=== PATIENT | female | born 1990 | race American Indian/Alaskan Native ===

== ENCOUNTER 2019-10-28 14:39 | Emergency (ER) | payer OTHER ==
[2019-10-28 15:02] VITALS: BP 118/69
[2019-10-28 16:06] LABS: Basophils % (Auto) 0.8 % (0.0-1.8); Eosinophils # (Auto) 0.1 K/mm3 (0.0-0.4); Eosinophils % (Auto) 1.5 % (0.0-4.3); Hematocrit 41.8 % (30.3-42.9); Lymphocytes # (Auto) 2.4 K/mm3 (1.2-5.4); Lymphocytes % (Auto) 42.2 % (13.4-35.0); Mean Corpuscular HGB Conc 34 % (30-34); Mean Corpuscular Volume 92 fl (79-97); Monocytes # (Auto) 0.3 K/mm3 (0.0-0.8); Monocytes % (Auto) 5.6 % (0.0-7.3); Platelet Count 246 K/mm3 (140-440); Red Blood Count 4.54 M/mm3 (3.65-5.03); Red Cell Distribution Width 13.4 % (13.2-15.2)
[2019-10-28 16:10] LABS: Bacteria,Urine 1+ /HPF (Negative); Bilirubin,Urine NEG (Negative); Blood,Urine NEG (Negative); Color,Urine Yellow (Yellow); Mucus,Urine 3+ /HPF; Protein,Urine <15 mg/dL mg/dL (Negative); RBC,Urine < 1.0 /HPF (0.0-6.0); Urobilinogen,Urine < 2.0 mg/dL (<2.0)
--- NOTE | 2019-10-28 19:43 | Emergency Department Report ---
Chief Complaint: Vaginal Bleeding Stated Complaint: GLAND SWELLING/PAIN Time Seen by Provider: 10/28/19 19:38 - HPI History of Present Illness: 29-year-old -Colombian female presents to the emergency room stating that she has a rash down in her vaginal. That's painful. Patient denies any discharge or odor. Patient denies any abdominal pain or nausea no vomiting no fever or chills. - Exam Vital Signs: Vital Signs 10/28/19 10/28/19 14:54 14:55 Temperature 98.5 F 98.2 F Pulse Rate 79 69 Respiratory 16 17 Rate Blood Pressure 117/66 118/69 O2 Sat by Pulse 97 100 Oximetry Physical Exam: alert and oriented 3 no acute distress nontoxic in appearance Patient is able to walk without difficulty, mood is stable MSE screening note: Focused history and physical exam performed. Due to findings the following was ordered: 29-year-old -[place]ombian female presents to the emergency room stating that she has a rash down in her vaginal. That's painful. Patient denies any discharge or odor. Patient denies any abdominal pain or nausea no vomiting no fever or chills. She has stable vital signs. Urinalysis is negative for any acute findings. Discussed with patient she needs to follow up with her [employer] provider or health department for STD screening. Patient verbalized understanding ED Medical Decision Making - Lab Data Result diagrams: 10/28/19 15:45 ED Disposition for MSE Disposition: Z-07 MED SCREENING EXAM-LEFT Is pt being admited?: No Does the pt Need Aspirin: No Condition: Stable Referrals: PRIMARY CARE [Primary Care Provider] - 3-5 Days [facility] [Outside] - 3-5 Days [facility] [Outside] - 3-5 Days [facility] [Outside] - 3-5 Days [facility] [Outside] - 3-5 Days
== END 2019-10-28 20:00 | disposition left against medical advice (07) ==
LOC: ED 14:39
DX: R21 Rash and other nonspecific skin eruption (principal)
CPT/HCPCS: 36415; 81001; 84702; 84703; 85025

== ENCOUNTER 2019-12-07 17:28 | Emergency (ER) | payer OTHER ==
[2019-12-07 17:40] VITALS: BP 125/75
--- NOTE | 2019-12-07 19:49 | Emergency Department Report ---
Blank Doc - Documentation Documentation: 29-year-old female that presents with right flank pain. This initial assessment/diagnostic orders/clinical plan/treatment(s) is/are subject to change based on patient's health status, clinical progression and re- assessment by fellow clinical providers in the ED. Further treatment and workup at subsequent clinical providers discretion. Patient/guardians urged not to elope from the ED as their condition may be serious if not clinically assessed and managed. Initial orders include: 1- Patient sent to [facility] for further evaluation and treatment 2- UA
[2019-12-07 20:16] LABS: Bilirubin,Urine NEG (Negative); Blood,Urine LG (Negative); Color,Urine Yellow (Yellow); Mucus,Urine 3+ /HPF; Protein,Urine <15 mg/dL mg/dL (Negative); Urobilinogen,Urine < 2.0 mg/dL (<2.0)
[2019-12-07] MEDS ORDERED: KETOROLAC 30 MG/1 ML INJ IM ONE (20:28)
[2019-12-07] MEDS ORDERED: dexAMETHasone 20 MG/5 ML VIAL IM ONE (20:29)
[2019-12-07] MEDS ORDERED: ONDANSETRON 4 MG ODT TAB PO ONE (20:29)
[2019-12-07] MEDS ORDERED: oxyCODONE /ACETAMINOPHEN 5-325MG TAB PO ONE (20:31)
[2019-12-07 20:40] LABS: HCG Qualitative,Urine Negative (Negative)
--- NOTE | 2019-12-07 22:04 | Emergency Department Report ---
ED Back Pain/Injury HPI - General Chief Complaint: Back Pain/Injury Stated Complaint: BACK PAIN Time Seen by Provider: 12/07/19 19:49 Source: patient Limitations: No Limitations - History of Present Illness Initial Comments: Patient is a 29-year-old -[place]er female with no past medical history who presents to the ED with a complaint of acute onset persistent nontraumatic low back pain for the last 2 days. Patient states that in the last 12 hours the pain is worse and said that any slight movement makes the pain worse in her lower back. Patient denies fall, traumatic injury, heavy lifting, chest pain, shortness of breath, abdominal pain, hematuria, numbness and tingling or weakness of the lower extremities bilaterally, urinary or bowel incontinence, saddle paresthesia, dizziness, dysuria, urinary frequency and urgency and headache. MD Complaint: back pain -: Sudden, hour(s) (24) Similar Symptoms Previously: No Place: work Radiation: none Severity: severe Severity scale (0 -10): 8 Quality: sharp, aching Consistency: constant Improves With: none Worsens With: none Context: while lifting, turning/twisting, bending Associated Symptoms: denies other symptoms. denies: confusion, weakness, chest pain, numbness, difficulty walking, difficulty urinating, diaphoresis, constipation, headaches, abdominal pain, loss of appetite, nausea/vomiting, rash, seizure, shortness of breath, syncope, other - Related Data Previous Rx's Medication Instructions Recorded Last Taken Type Ibuprofen [Motrin] 600 mg PO Q8H PRN #30 tablet 12/07/19 Unknown Rx cephALEXin [Keflex] 500 mg PO Q8HR #30 cap 12/07/19 Unknown Rx methOCARBAMOL [Robaxin TAB] 750 mg PO Q8H PRN #30 tablet 12/07/19 Unknown Rx predniSONE [Deltasone] 40 mg PO QDAY #10 tab 12/07/19 Unknown Rx traMADoL [Ultram] 50 mg PO Q6HR PRN #12 tablet 12/07/19 Unknown Rx Allergies Allergy/AdvReac Type Severity Reaction Status Date / Time No Known Allergies Allergy Verified 12/07/19 17:30 ED Review of Systems ROS: Stated complaint: BACK PAIN Other details as noted in HPI Constitutional: denies: chills, fever Eyes: denies: eye pain, eye discharge, vision change ENT: denies: ear pain, throat pain Respiratory: denies: cough, shortness of breath, wheezing Cardiovascular: denies: chest pain, palpitations Endocrine: no symptoms reported Gastrointestinal: denies: abdominal pain, nausea, diarrhea Genitourinary: denies: urgency, dysuria, discharge Musculoskeletal: back pain (lower back pain). denies: joint swelling, arthralgia Skin: denies: rash, lesions Neurological: denies: headache, weakness, paresthesias Psychiatric: denies: anxiety, depression Hematological/Lymphatic: denies: easy bleeding, easy bruising ED Past Medical Hx - Past Medical History Previous Medical History?: No - Surgical History Past Surgical History?: No - Social History Smoking Status: Never Smoker Substance Use Type: None - Medications Home Medications: Home Medications Medication Instructions Recorded Confirmed Last Taken Type Ibuprofen [Motrin] 600 mg PO Q8H PRN #30 tablet 12/07/19 Unknown Rx cephALEXin [Keflex] 500 mg PO Q8HR #30 cap 12/07/19 Unknown Rx methOCARBAMOL [Robaxin TAB] 750 mg PO Q8H PRN #30 tablet 12/07/19 Unknown Rx predniSONE [Deltasone] 40 mg PO QDAY #10 tab 12/07/19 Unknown Rx traMADoL [Ultram] 50 mg PO Q6HR PRN #12 tablet 12/07/19 Unknown Rx ED Physical Exam - General Limitations: No Limitations General appearance: alert, in no apparent distress - Head Head exam: Present: atraumatic, normocephalic, normal inspection - Eye Eye exam: Present: normal appearance, PERRL, EOMI Pupils: Present: normal accommodation - ENT ENT exam: Present: normal exam, normal orophraynx, mucous membranes moist, TM's normal bilaterally, normal external ear exam - Neck Neck exam: Present: normal inspection, full ROM. Absent: tenderness, lymphadenopathy - Respiratory Respiratory exam: Present: normal lung sounds bilaterally. Absent: respiratory distress, wheezes, rales, rhonchi, chest wall tenderness, accessory muscle use, decreased breath sounds, prolonged expiratory - Cardiovascular Cardiovascular Exam: Present: regular rate, normal rhythm, normal heart sounds. Absent: systolic murmur, diastolic murmur, rubs, gallop - GI/Abdominal GI/Abdominal exam: Present: soft, normal bowel sounds. Absent: distended, tenderness, guarding, hyperactive bowel sounds, hypoactive bowel sounds, organomegaly - Extremities Exam Extremities exam: Present: normal inspection, full ROM, normal capillary refill - Back Exam Back exam: Present: normal inspection, full ROM, tenderness (Palpable lumbosacral paraspinal tenderness), muscle spasm, paraspinal tenderness - Neurological Exam Neurological exam: Present: alert, oriented X3, CN II-XII intact, normal gait, reflexes normal - Psychiatric Psychiatric exam: Present: normal affect, normal mood - Skin Skin exam: Present: warm, dry, intact, normal color. Absent: rash ED Course Vital Signs 12/07/19 12/07/19 12/07/19 17:38 21:00 21:02 Temperature 99.6 F Pulse Rate 85 Respiratory 18 14 14 Rate Blood Pressure 125/75 [Right] O2 Sat by Pulse 98 Oximetry ED Medical Decision Making - Medical Decision Making This is a 29-year-old female who presented to the ED with acute onset of nontraumatic low back pain for 2 days. In the ED, patient is alert and oriented 3 and is not in distress but appears to be in significant pain, crying during the physical exam. She was treated for pain in the ED and urinalysis shows acut e urinary tract infection. On reevaluation, patient's pain is well controlled medications. Patient was discharged home on pain medications and muscle relaxants and antibiotics for UTI and was advised to follow-up with her primary care physician and 7-10 days for reevaluation or return to the ED immediately if symptoms get worse. - Differential Diagnosis UTI; Muscle strain; muscle spasm Critical care attestation.: If time is entered above; I have spent that time in minutes in the direct care of this critically ill patient, excluding procedure time. ED Disposition Clinical Impression: Spasm of muscle of lower back, Acute urinary tract infection Acute low back pain Qualifiers: Back pain laterality: bilateral Sciatica presence: without sciatica Qualified Code(s): M54.5 - Low back pain Strain of lumbar paraspinal muscle Qualifiers: Encounter type: initial encounter Qualified Code(s): S39.012A - Strain of muscle, fascia and tendon of lower back, initial encounter Disposition: TO HOME OR SELFCARE Is pt being admited?: No Does the pt Need Aspirin: No Condition: Stable Instructions: Muscle Strain (ED), Muscle Spasm (ED), Acute Low Back Pain (ED), Urinary Tract Infection in Women (ED) Additional Instructions: Take medications with food, drink plenty of fluids and follow up with your primary care physician in 7-10 days for reevaluation. Return to the ED immediately if symptoms get worse. No heavy lifting advised and to evaluated by your primary care physician in 7-10 days. Prescriptions: predniSONE [Deltasone] 40 mg PO QDAY #10 tab cephALEXin [Keflex] 500 mg PO Q8HR #30 cap Ibuprofen [Motrin] 600 mg PO Q8H PRN #30 tablet PRN Reason: Pain methOCARBAMOL [Robaxin TAB] 750 mg PO Q8H PRN #30 tablet PRN Reason: Muscle Spasm traMADoL [Ultram] 50 mg PO Q6HR PRN #12 tablet PRN Reason: Pain Referrals: KATHYA TORRES MD [Staff Physician] - 7-10 days Forms: Work/School Release Form(ED) Time of Disposition: 22:04 Print Language: KENYAN
== END 2019-12-07 22:25 | disposition home or self-care (01) ==
LOC: ED 17:28
DX: S39.012A Strain of muscle, fascia and tendon of lower back, initial encounter (principal); M62.830 Muscle spasm of back; N39.0 Urinary tract infection, site not specified; Z79.1 Long term (current) use of non-steroidal anti-inflammatories (NSAID); Z79.899 Other long term (current) drug therapy; X58.XXXA Exposure to other specified factors, initial encounter; Y93.89 Activity, other specified; Y92.89 Other specified places as the place of occurrence of the external cause; Y99.8 Other external cause status
CPT/HCPCS: 81001; 81025; 87086; 96372; 99283; J1100; J1885; Q0162

== ENCOUNTER 2020-07-18 14:17 | Emergency (ER) | payer OTHER ==
[2020-07-18 14:43] VITALS: BP 114/74
[2020-07-18] MEDS ORDERED: KETOROLAC 30 MG/1 ML INJ IM ONE (18:45)
--- NOTE | 2020-07-18 18:49 | Emergency Department Report ---
ED General Adult HPI - General Chief complaint: Extremity Injury, Upper Stated complaint: RT ARM PAIN Time Seen by Provider: 07/18/20 16:09 Source: patient Mode of arrival: Ambulatory Limitations: No Limitations - History of Present Illness Initial comments: Patient presents with complaints of right shoulder pain ongoing since 07/13/2020. Patient states that she had a work-related injury when she picked up a heavy object and felt a pop. She states she did follow-up with the [employer] doctor the next day and had injections placed into her arm. Patient states her arm continues to hurt and that the medication given for home is not helping. She also states she has some numbness in the arm and decreased range of motion due to pain. She denies any chest pain or shortness of breath. Pain occurs with movement of the arm. She also reports that she is supposed to be wearing a sling but did not have it on today. - Related Data Previous Rx's Medication Instructions Recorded Last Taken Type Ibuprofen [Motrin] 600 mg PO Q8H PRN #30 tablet 12/07/19 Unknown Rx cephALEXin [Keflex] 500 mg PO Q8HR #30 cap 12/07/19 Unknown Rx methOCARBAMOL [Robaxin TAB] 750 mg PO Q8H PRN #30 tablet 12/07/19 Unknown Rx predniSONE [Deltasone] 40 mg PO QDAY #10 tab 12/07/19 Unknown Rx traMADoL [Ultram] 50 mg PO Q6HR PRN #12 tablet 12/07/19 Unknown Rx Allergies Allergy/AdvReac Type Severity Reaction Status Date / Time No Known Allergies Allergy Verified 07/18/20 14:39 ED Review of Systems ROS: Stated complaint: RT ARM PAIN Other details as noted in HPI Constitutional: denies: chills, diaphoresis, fever, malaise, weakness Respiratory: denies: cough, shortness of breath Cardiovascular: denies: chest pain, palpitations, edema, syncope Gastrointestinal: denies: abdominal pain, nausea, vomiting Musculoskeletal: arthralgia. denies: joint swelling Skin: denies: change in color Neurological: numbness. denies: weakness, abnormal gait Hematological/Lymphatic: denies: swollen glands ED Past Medical Hx - Social History Smoking Status: Never Smoker Substance Use Type: None - Medications Home Medications: Home Medications Medication Instructions Recorded Confirmed Last Taken Type Ibuprofen [Motrin] 600 mg PO Q8H PRN #30 tablet 12/07/19 Unknown Rx cephALEXin [Keflex] 500 mg PO Q8HR #30 cap 12/07/19 Unknown Rx methOCARBAMOL [Robaxin TAB] 750 mg PO Q8H PRN #30 tablet 12/07/19 Unknown Rx predniSONE [Deltasone] 40 mg PO QDAY #10 tab 12/07/19 Unknown Rx traMADoL [Ultram] 50 mg PO Q6HR PRN #12 tablet 12/07/19 Unknown Rx ED Physical Exam - General Limitations: No Limitations General appearance: alert, in no apparent distress - Head Head exam: Present: atraumatic, normocephalic - Eye Eye exam: Present: normal appearance. Absent: scleral icterus - Neck Neck exam: Present: normal inspection, full ROM - Respiratory Respiratory exam: Present: normal lung sounds bilaterally. Absent: respiratory distress, chest wall tenderness - Cardiovascular Cardiovascular Exam: Present: regular rate, normal rhythm. Absent: systolic murmur, diastolic murmur, rubs, gallop - GI/Abdominal GI/Abdominal exam: Present: soft. Absent: distended, tenderness - Extremities Exam Extremities exam: Present: other (Tenderness to palpation of the muscles overlying the right shoulder without bony deformity/tenderness noted. Patient has slight limited range of motion of abduction of the shoulder secondary to pain. Normal radial and ulnar pulses noted. Full range of motion of the right elbow, wrist, hand, and fingers is noted with normal perfusion and sensation) - Neurological Exam Neurological exam: Present: alert, oriented X3 - Psychiatric Psychiatric exam: Present: normal affect, normal mood - Skin Skin exam: Present: warm, dry, intact, normal color. Absent: rash, ecchymosis ED Course Vital Signs 07/18/20 07/18/20 14:39 20:55 Temperature 98.1 F Pulse Rate 68 79 Respiratory 18 17 Rate Blood Pressure 114/74 O2 Sat by Pulse 100 100 Oximetry ED Medical Decision Making - Medical Decision Making Patient presents with complaints of right shoulder pain ongoing since 07/13/2020. Patient states that she had a work-related injury when she picked up a heavy object and felt a pop. She states she did follow-up with the Work[employer] doctor the next day and had injections placed into her arm. Patient states her arm continues to hurt and that the medication given for home is not helping. She also states she has some numbness in the arm and decreased range of motion due to pain. She denies any chest pain or shortness of breath. Pain occurs with movement of the arm. She also reports that she is supposed to be wearing a sling but did not have it on today. No significant abnormalities are noted on exam. Given patient is already following with [employer]er's [employer]. physician, recommend continued follow-up for further assessment and treatment. She is well-appearing and stable for discharge home. Strict return precautions were discussed in detail with patient who verbalizes understanding. Critical care attestation.: If time is entered above; I have spent that time in minutes in the direct care of this critically ill patient, excluding procedure time. ED Disposition Clinical Impression: Right shoulder injury Qualifiers: Encounter type: initial encounter Qualified Code(s): S49.91XA - Unspecified injury of right shoulder and upper arm, initial encounter Disposition: DC-01 TO HOME OR SELFCARE Is pt being admited?: No Condition: Stable Instructions: Rotator Cuff Injury (ED) Referrals: THEODORA LUU MD [Staff Physician] - 07/19/20 Forms: Work/School Release Form(ED)
== END 2020-07-18 20:55 | disposition home or self-care (01) ==
LOC: ED 14:17
DX: S49.91XA Unspecified injury of right shoulder and upper arm, initial encounter (principal); Z79.1 Long term (current) use of non-steroidal anti-inflammatories (NSAID); Z79.899 Other long term (current) drug therapy; X50.0XXA Overexertion from strenuous movement or load, initial encounter; Y93.89 Activity, other specified; Y92.89 Other specified places as the place of occurrence of the external cause; Y99.0 Civilian activity done for income or pay
CPT/HCPCS: 96372; 99282; J1885

== ENCOUNTER 2020-11-10 10:34 | Emergency (ER) | payer SELFPAY ==
[2020-11-10 10:46] VITALS: BP 114/68
--- NOTE | 2020-11-10 11:10 | Emergency Department Report ---
ED General Adult HPI - General Chief complaint: Chest Pain Stated complaint: CHEST PAIN Time Seen by Provider: 11/10/20 10:54 Source: patient Mode of arrival: Ambulatory Limitations: No Limitations - History of Present Illness Initial comments: Patient is a 30-year-old female presents emergency room with complaints of URI symptoms that began 3 days ago. She has associated cough with a small amount of mucus production. She states that she has chest discomfort across the chest and upper back pain. She states that her pain is worse with coughing, sneezing, movement. She states that she also does heavy lifting at her job. She denies any pleuritic chest pain. She denies any fever, vomiting, diarrhea, shortness of breath, leg swelling, diaphoresis, hemoptysis, dizziness, syncope. She denies any sick contacts, recent travel, recent surgery, hormone use. She has a past medical history of HIV and states that she is on her antivirals and reports she is undetectable. She has a past surgical history of cholecystectomy. She denies any allergies to medications. She states she is a non-smoker. Last menstrual cycle 11/03/2020. - Related Data Previous Rx's Medication Instructions Recorded Last Taken Type Ibuprofen [Motrin] 600 mg PO Q8H PRN #30 tablet 12/07/19 Unknown Rx cephALEXin [Keflex] 500 mg PO Q8HR #30 cap 12/07/19 Unknown Rx methOCARBAMOL [Robaxin TAB] 750 mg PO Q8H PRN #30 tablet 12/07/19 Unknown Rx predniSONE [Deltasone] 40 mg PO QDAY #10 tab 12/07/19 Unknown Rx traMADoL [Ultram] 50 mg PO Q6HR PRN #12 tablet 12/07/19 Unknown Rx Benzonatate [Tessalon Perles] 100 mg PO Q8HR PRN #10 capsule 11/10/20 Unknown Rx Naproxen [EC-Naprosyn] 500 mg PO BID PRN #14 tablet.dr 11/10/20 Unknown Rx Prednisone [predniSONE 10 mg 10 mg PO .TAPER #1 tab.ds.pk 11/10/20 Unknown Rx (6-Day Pack, 21 Tabs)] guaiFENesin ER [Mucinex ER] 600 mg PO BID #14 tablet.er 11/10/20 Unknown Rx methOCARBAMOL [Robaxin TAB] 500 mg PO BID PRN #14 tab 11/10/20 Unknown Rx Allergies Allergy/AdvReac Type Severity Reaction Status Date / Time No Known Allergies Allergy Verified 11/10/20 10:41 ED Review of Systems ROS: Stated complaint: CHEST PAIN Other details as noted in HPI Comment: All other systems reviewed and negative ED Past Medical Hx - Past Medical History Additional medical history: HIV - Surgical History Hx Cholecystectomy: Yes - Social History Smoking Status: Never Smoker Substance Use Type: None - Medications Home Medications: Home Medications Medication Instructions Recorded Confirmed Last Taken Type Ibuprofen [Motrin] 600 mg PO Q8H PRN #30 tablet 12/07/19 Unknown Rx cephALEXin [Keflex] 500 mg PO Q8HR #30 cap 12/07/19 Unknown Rx methOCARBAMOL [Robaxin TAB] 750 mg PO Q8H PRN #30 tablet 12/07/19 Unknown Rx predniSONE [Deltasone] 40 mg PO QDAY #10 tab 12/07/19 Unknown Rx traMADoL [Ultram] 50 mg PO Q6HR PRN #12 tablet 12/07/19 Unknown Rx Benzonatate [Tessalon Perles] 100 mg PO Q8HR PRN #10 capsule 11/10/20 Unknown Rx Naproxen [EC-Naprosyn] 500 mg PO BID PRN #14 tablet.dr 11/10/20 Unknown Rx Prednisone [predniSONE 10 mg 10 mg PO .TAPER #1 tab.ds.pk 11/10/20 Unknown Rx (6-Day Pack, 21 Tabs)] guaiFENesin ER [Mucinex ER] 600 mg PO BID #14 tablet.er 11/10/20 Unknown Rx methOCARBAMOL [Robaxin TAB] 500 mg PO BID PRN #14 tab 11/10/20 Unknown Rx ED Physical Exam - General Limitations: No Limitations General appearance: alert, in no apparent distress - Head Head exam: Present: atraumatic, normocephalic - Eye Eye exam: Present: normal appearance - ENT ENT exam: Present: mucous membranes moist - Respiratory Respiratory exam: Present: normal lung sounds bilaterally, chest wall tenderness (reproducible anterior chest wall ttp, no crepitus, no deformity, no ecchymosis, no skin changes). Absent: respiratory distress, wheezes, rales, rhonchi, stridor, accessory muscle use, decreased breath sounds, prolonged expiratory - Cardiovascular Cardiovascular Exam: Present: regular rate, normal rhythm, normal heart sounds. Absent: systolic murmur, diastolic murmur, rubs, gallop - Neurological Exam Neurological exam: Present: alert, oriented X3 - Psychiatric Psychiatric exam: Present: normal affect, normal mood - Skin Skin exam: Present: warm, dry, intact ED Course Vital Signs 11/10/20 10:45 Temperature 99.7 F H Pulse Rate 99 H Respiratory 22 Rate Blood Pressure 114/68 O2 Sat by Pulse 99 Oximetry ED Medical Decision Making - Lab Data Vital Signs 11/10/20 10:45 Temperature 99.7 F H Pulse Rate 99 H Respiratory 22 Rate Blood Pressure 114/68 O2 Sat by Pulse 99 Oximetry - Medical Decision Making Patient is a 30-year-old female presents emergency room with complaints of URI symptoms that began 3 days ago. She has associated cough with a small amount of mucus production. She states that she has chest discomfort across the chest and upper back pain. She states that her pain is worse with coughing, sneezing, movement. She states that she also does heavy lifting at her job. She denies any pleuritic chest pain. She denies any fever, vomiting, diarrhea, shortness of breath, leg swelling, diaphoresis, hemoptysis, dizziness, syncope. She denies any sick contacts, recent travel, recent surgery, hormone use. She has a past medical history of HIV and states that she is on her antivirals and reports she is undetectable. She has a past surgical history of cholecystectomy. She denies any allergies to medications. She states she is a non-smoker. Last menstrual cycle 11/03/2020. Vitals with very low-grade temperature at 99.7, otherwise vitals are normal. on exam: reproducible anterior chest wall ttp, no crepitus, no deformity, no ecchymosis, no skin changes, breath sounds are clear bilaterally, no wheezing, no rales, no rhonchi, no respiratory distress, no accessory muscle use. Examination appears most consistent with viral URI which is likely causing costochondritis. Patient has no clinical signs of bacterial pneumonia or bacterial bronchitis. No clinical signs of dehydration. Patient given prescription for naproxen, Robaxin, prednisone, Mucinex, Tessalon Perles. Discussed return precautions with patient. Advised patient Please take medication as prescribed. Increase your fluid intake. May use ice pack, heating pad, rest, Epsom salt bath. Follow-up with a primary care doctor. Return to emergency room for any new or worsening symptoms. Critical care attestation.: If time is entered above; I have spent that time in minutes in the direct care of this critically ill patient, excluding procedure time. ED Disposition Clinical Impression: Viral URI, Costochondritis Disposition: DC- TO HOME OR SELFCARE Is pt being admited?: No Does the pt Need Aspirin: No Condition: Stable Instructions: Costochondritis, [id number], Viral Illness, Adult Additional Instructions: Please take medication as prescribed. Increase your fluid intake. May use ice pack, heating pad, rest, Epsom salt bath. Follow-up with a primary care doctor. Return to emergency room for any new or worsening symptoms. Prescriptions: Naproxen [EC-Naprosyn] 500 mg PO BID PRN #14 tablet.dr PRN Reason: pain guaiFENesin ER [Mucinex ER] 600 mg PO BID #14 tablet.er Prednisone [predniSONE 10 mg (6-Day Pack, 21 Tabs)] 10 mg PO .TAPER #1 tab.ds.pk methOCARBAMOL [Robaxin TAB] 500 mg PO BID PRN #14 tab PRN Reason: pain Benzonatate [Tessalon Perles] 100 mg PO Q8HR PRN #10 capsule PRN Reason: cough Referrals: PRIMARY CARE, [Primary Care Provider] - 2-3 Days Forms: Work/School Release Form(ED) Time of Disposition: 11:14 Print Language: LATVIAN
== END 2020-11-10 11:38 | disposition home or self-care (01) ==
LOC: ED 10:34
DX: J06.9 Acute upper respiratory infection, unspecified (principal); M94.0 Chondrocostal junction syndrome [Tietze]; Z79.899 Other long term (current) drug therapy; Z21 Asymptomatic human immunodeficiency virus [HIV] infection status; Z90.49 Acquired absence of other specified parts of digestive tract
CPT/HCPCS: 99282

== ENCOUNTER 2020-11-16 08:56 | Inpatient (IN) | payer OTHER ==
[2020-11-16] MEDS ORDERED: ACETAMINOPHEN 325 MG TAB PO ONE (09:39)
--- NOTE | 2020-11-16 09:42 | Event Note ---
ED Screening Note Date of service: 11/16/20 Time: 09:39 ED Screening Note: This initial assessment/diagnostic orders/clinical plan/treatment(s) is/are subject to change based on patients health status, clinical progression and re- assessment by fellow clinical providers in the ED. Further treatment and workup at subsequent clinical providers discretion. Patient/guardian urged not to elope from the ED as their condition may be serious if not clinically assessed and managed. Initial orders include: This is a 30-year-old female she was seen in this emergency room on the diagnosed with viral URI and costochondritis. She returns to this emergency room today complaining of fever and shortness of breath. Patient has a history of being HIV positive she is compliant with her antiretrovirals. Temperature is 102.9 patient states she was tested for Covid and is positive
[2020-11-16 10:49] LABS: Basophils # (Auto) 0.2 K/mm3 (0.0-0.1); Basophils % (Auto) 2.1 % (0.0-1.8); Hematocrit 39.2 % (30.3-42.9); Hemoglobin 13.2 gm/dl (10.1-14.3); Lymphocytes # (Auto) 1.8 K/mm3 (1.2-5.4); Lymphocytes % (Auto) 21.8 % (13.4-35.0); Mean Corpuscular HGB Conc 34 % (30-34); Mean Corpuscular Volume 93 fl (79-97); Monocytes # (Auto) 0.5 K/mm3 (0.0-0.8); Monocytes % (Auto) 6.7 % (0.0-7.3); Platelet Count 206 K/mm3 (140-440); Red Blood Count 4.23 M/mm3 (3.65-5.03); Red Cell Distribution Width 12.7 % (13.2-15.2)
--- NOTE | 2020-11-16 11:08 | XRay Report ---
CHEST PA AND LATERAL VIEWS INDICATION: COVID + FEVER 102.9. COMPARISON: None. FINDINGS: Support devices: None. Heart: Within normal limits. Lungs/Pleura: Somewhat patchy bilateral airspace opacities are noted. These are mild to moderate in s everity. No pleural abnormality. IMPRESSION: 1. Probable bilateral pneumonia. Signer Name: Juanjo Colón MD Signed: 11/16/2020 11:03 AM Workstation Name: [id number]
[2020-11-16 11:15] LABS: Alanine Aminotransferase 45 units/L (7-56); Albumin 3.8 g/dL (3.9-5); BUN/Creatinine Ratio 11; Blood Urea Nitrogen 11 mg/dL (7-17); Calcium 8.7 mg/dL (8.4-10.2); Hemolysis Index 0
[2020-11-16] MEDS ORDERED: SODIUM CHLORIDE 0.9% 1000 ML IV SOLN IV ONE (11:41)
[2020-11-16] MEDS ORDERED: cefTRIAXone/NS 1 GM/50 ML 1 GM/50 ML BAG IV ONE (11:42)
[2020-11-16] MEDS ORDERED: dexAMETHasone 4 MG/ML VIAL IV ONE (11:42)
[2020-11-16] MEDS ORDERED: AZITHROMYCIN/NS 500 MG/250 ML 500 MG/250 ML BAG IV ONE (11:42)
[2020-11-16] MEDS ORDERED: ONDANSETRON 4 MG/2 ML INJ IV ONE (11:56)
--- NOTE | 2020-11-16 11:56 | Emergency Department Report ---
ED Shortness of Breath HPI - General Chief Complaint: Upper Respiratory Infection Stated Complaint: COVID POSITIVE/COUGH Time Seen by Provider: 11/16/20 11:40 Source: patient Mode of arrival: Wheelchair Limitations: No Limitations - History of Present Illness Initial Comments: Patient is 30 years old female with history of HIV. Patient presented to the ER complaining of shortness of breath, cough, fever, generalized weakness and nausea. Patient stated that her symptoms has been going on for 7 days and to start getting worse since last night. Patient stated that she tested positive for COVID-19 on Wednesday. Patient stated that her symptoms getting worse. Patient denied any chest pain, abdominal pain, vomiting or diarrhea. MD Complaint: shortness of breath -: days(s) - Related Data Previous Rx's Medication Instructions Recorded Last Taken Type Ibuprofen [Motrin] 600 mg PO Q8H PRN #30 tablet 12/07/19 Unknown Rx cephALEXin [Keflex] 500 mg PO Q8HR #30 cap 12/07/19 Unknown Rx methOCARBAMOL [Robaxin TAB] 750 mg PO Q8H PRN #30 tablet 12/07/19 Unknown Rx predniSONE [Deltasone] 40 mg PO QDAY #10 tab 12/07/19 Unknown Rx traMADoL [Ultram] 50 mg PO Q6HR PRN #12 tablet 12/07/19 Unknown Rx Benzonatate [Tessalon Perles] 100 mg PO Q8HR PRN #10 capsule 11/10/20 Unknown Rx Naproxen [EC-Naprosyn] 500 mg PO BID PRN #14 tablet.dr 11/10/20 Unknown Rx Prednisone [predniSONE 10 mg 10 mg PO .TAPER #1 tab.ds.pk 11/10/20 Unknown Rx (6-Day Pack, 21 Tabs)] guaiFENesin ER [Mucinex ER] 600 mg PO BID #14 tablet.er 11/10/20 Unknown Rx methOCARBAMOL [Robaxin TAB] 500 mg PO BID PRN #14 tab 11/10/20 Unknown Rx Allergies Allergy/AdvReac Type Severity Reaction Status Date / Time No Known Allergies Allergy Verified 11/10/20 10:41 ED Review of Systems ROS: Stated complaint: COVID POSITIVE/COUGH Other details as noted in HPI Comment: All other systems reviewed and negative Constitutional: chills, fever, malaise, weakness Respiratory: cough, orthopnea, shortness of breath, SOB with exertion, SOB at rest Cardiovascular: palpitations. denies: chest pain Gastrointestinal: nausea. denies: vomiting, diarrhea, constipation, hematemesi s, melena, hematochezia Musculoskeletal: denies: back pain Neurological: weakness. denies: headache, numbness, paresthesias, confusion, abnormal gait, vertigo ED Past Medical Hx - Past Medical History Previous Medical History?: Yes Additional medical history: HIV - Surgical History Past Surgical History?: Yes Hx Cholecystectomy: Yes - Social History Smoking Status: Never Smoker Substance Use Type: Prescribed - Medications Home Medications: Home Medications Medication Instructions Recorded Confirmed Last Taken Type Ibuprofen [Motrin] 600 mg PO Q8H PRN #30 tablet 12/07/19 Unknown Rx cephALEXin [Keflex] 500 mg PO Q8HR #30 cap 12/07/19 Unknown Rx methOCARBAMOL [Robaxin TAB] 750 mg PO Q8H PRN #30 tablet 12/07/19 Unknown Rx predniSONE [Deltasone] 40 mg PO QDAY #10 tab 12/07/19 Unknown Rx traMADoL [Ultram] 50 mg PO Q6HR PRN #12 tablet 12/07/19 Unknown Rx Benzonatate [Tessalon Perles] 100 mg PO Q8HR PRN #10 capsule 11/10/20 Unknown Rx Naproxen [EC-Naprosyn] 500 mg PO BID PRN #14 tablet.dr 11/10/20 Unknown Rx Prednisone [predniSONE 10 mg 10 mg PO .TAPER #1 tab.ds.pk 11/10/20 Unknown Rx (6-Day Pack, 21 Tabs)] guaiFENesin ER [Mucinex ER] 600 mg PO BID #14 tablet.er 11/10/20 Unknown Rx methOCARBAMOL [Robaxin TAB] 500 mg PO BID PRN #14 tab 11/10/20 Unknown Rx ED Physical Exam - General Limitations: No Limitations General appearance: alert, in no apparent distress - Head Head exam: Present: atraumatic, normocephalic, normal inspection - ENT ENT exam: Present: mucous membranes dry - Neck Neck exam: Present: normal inspection, full ROM. Absent: tenderness, meningismus - Respiratory Respiratory exam: Present: rales, decreased breath sounds. Absent: respiratory distress, wheezes, rhonchi, accessory muscle use, prolonged expiratory - Cardiovascular Cardiovascular Exam: Present: tachycardia - GI/Abdominal GI/Abdominal exam: Present: soft, normal bowel sounds. Absent: distended, tenderness, guarding, rebound, rigid, organomegaly, mass, bruit, pulsatile mass, hernia - Extremities Exam Extremities exam: Present: normal inspection, full ROM, normal capillary refill. Absent: tenderness, pedal edema, calf tenderness - Back Exam Back exam: Present: normal inspection, full ROM. Absent: CVA tenderness (R), CVA tenderness (L) - Neurological Exam Neurological exam: Present: alert, oriented X3, CN II-XII intact - Psychiatric Psychiatric exam: Present: normal mood - Skin Skin exam: Present: warm, intact, normal color ED Course Vital Signs 11/16/20 11/16/20 09:11 12:11 Temperature 102.9 F H 99.6 F Pulse Rate 106 H 77 Respiratory 22 14 Rate Blood Pressure 116/64 Blood Pressure 104/56 [Left] O2 Sat by Pulse 98 98 Oximetry ED Medical Decision Making - Lab Data Result diagrams: 11/16/20 10:07 11/16/20 10:07 - Radiology Data Radiology results: report reviewed - Medical Decision Making Patient is 30 years old female with history of HIV. Patient presented to the ER complaining of shortness of breath, cough, fever, generalized weakness and nausea. Patient stated that her symptoms has been going on for 7 days and to start getting worse since last night. Patient stated that she tested positive for COVID-19 on Wednesday. Patient stated that her symptoms getting worse. Patient denied any chest pain, abdominal pain, vomiting or diarrhea. Patient received acetaminophen for fever. Chest x-ray showed bilateral lower lobe infiltrate she received Rocephin, Zithromax and Decadron. I discussed the patient with Dr. Au, he agreed to admit the patient to medical service for further management. Critical care attestation.: If time is entered above; I have spent that time in minutes in the direct care of this critically ill patient, excluding procedure time. ED Disposition Clinical Impression: Pneumonia of both lower lobes, Pneumonia due to COVID-19 virus Disposition: OP ADMIT IP TO THIS HOSP Is pt being admited?: Yes Condition: Stable Instructions: Bacterial Pneumonia (ED) Referrals: PRIMARY CARE, [Primary Care Provider] - 3-5 Days
[2020-11-16 14:14] LABS: Bacteria,Urine 1+ /HPF (Negative); Bilirubin,Urine NEG (Negative); Blood,Urine NEG (Negative); Color,Urine Yellow (Yellow); Mucus,Urine FEW /HPF; Protein,Urine <15 mg/dL mg/dL (Negative); Urobilinogen,Urine < 2.0 mg/dL (<2.0); WBC,Urine < 1.0 /HPF (0.0-6.0)
[2020-11-16 15:12] LABS: C-Reactive Protein 13.3 mg/dL (0.00-1.30)
[2020-11-16] MEDS: guaiFENesin DM 200/20 MG ORAL LIQD 10 ML PO PRN ×2 (17:42→22:20)
[2020-11-16] MEDS ORDERED: ONDANSETRON 4 MG/2 ML INJ IV PRN ×2 (19:18→21:29)
[2020-11-16] MEDS ORDERED: ACETAMINOPHEN 325 MG TAB PO PRN ×2 (19:18→21:29)
--- NOTE | 2020-11-16 21:28 | History and Physical Report ---
History of Present Illness Date of examination: 11/16/20 Date of admission: 11/16/20 14:05 Chief complaint: Cough and shortness of breath for several days History of present illness: 30-year-old female with history of HIV comes in for increasing shortness of breath cough fever and generalized weakness. Patient states her symptoms started about 7 days ago and are getting worse since yesterday. Patient has tested positive for Covid on Wednesday which is November 11 and today is November 16. Patient is desaturating on walking. - Past Medical History Previous Medical History?: Yes Additional medical history: HIV - Surgical History Past Surgical History?: Yes Hx Cholecystectomy: Yes - Social History Smoking Status: Never Smoker Substance Use Type: Prescribed - Medications Home Medications: Home Medications Medication Instructions Recorded Confirmed Last Taken Type Ibuprofen [Motrin] 600 mg PO Q8H PRN #30 tablet 12/07/19 Unknown Rx cephALEXin [Keflex] 500 mg PO Q8HR #30 cap 12/07/19 Unknown Rx methOCARBAMOL [Robaxin TAB] 750 mg PO Q8H PRN #30 tablet 12/07/19 Unknown Rx predniSONE [Deltasone] 40 mg PO QDAY #10 tab 12/07/19 Unknown Rx traMADoL [Ultram] 50 mg PO Q6HR PRN #12 tablet 12/07/19 Unknown Rx Benzonatate [Tessalon Perles] 100 mg PO Q8HR PRN #10 capsule 11/10/20 Unknown Rx Naproxen [EC-Naprosyn] 500 mg PO BID PRN #14 tablet.dr 11/10/20 Unknown Rx Prednisone [predniSONE 10 mg 10 mg PO .TAPER #1 tab.ds.pk 11/10/20 Unknown Rx (6-Day Pack, 21 Tabs)] guaiFENesin ER [Mucinex ER] 600 mg PO BID #14 tablet.er 11/10/20 Unknown Rx methOCARBAMOL [Robaxin TAB] 500 mg PO BID PRN #14 tab 11/10/20 Unknown Rx Review of Systems ROS: Stated complaint: COVID POSITIVE/COUGH Other details as noted in HPI Comment: All other systems reviewed and negative Constitutional: chills, fever, malaise, weakness Respiratory: cough, orthopnea, shortness of breath, SOB with exertion, SOB at rest Cardiovascular: palpitations. denies: chest pain Gastrointestinal: nausea. denies: vomiting, diarrhea, constipation, hematemesi s, melena, hematochezia Musculoskeletal: denies: back pain Neurological: weakness. denies: headache, numbness, paresthesias, confusion, abnormal gait, vertigo Medications and Allergies Allergies Allergy/AdvReac Type Severity Reaction Status Date / Time No Known Allergies Allergy Verified 11/10/20 10:41 Home Medications Medication Instructions Recorded Confirmed Last Taken Type Emtricitab/Rilpiviri/Tenof Ala 1 each PO 11/16/20 11/16/20 09:00 History [Odefsey Tablet] Active Meds: Active Medications Acetaminophen (Acetaminophen 325 Mg Tab) 650 mg PO Q6H PRN PRN Reason: Pain, Mild (1-3) Guaifenesin (Guaifenesin Dm 200/20 Mg Oral Liqd 10 Ml) 10 ml PO Q4H PRN PRN Reason: Cough Last Admin: 11/16/20 17:42 Dose: 10 ml Documented by: Ondansetron HCl (Ondansetron 4 Mg/2 Ml Inj) 4 mg IV Q8H PRN PRN Reason: Nausea And Vomiting Pneumococcal Polyvalent Vaccine (Pneumococcal 23 Valent 0.5 Ml Vial) 0.5 ml IM .ONCE ONE Stop: 11/18/20 12:01 Exam - Constitutional Vitals: Temp Pulse Resp BP Pulse Ox 98.3 F 58 L 11 L 116/68 100 11/16/20 15:39 11/16/20 18:20 11/16/20 18:20 11/16/20 18:20 11/16/20 18:20 General appearance: Present: no acute distress, well-nourished - EENT Eyes: Present: PERRL ENT: hearing intact, clear oral mucosa - Neck Neck: Present: supple, normal ROM - Respiratory Respiratory effort: normal Respiratory: bilateral: CTA - Cardiovascular Heart rate: 78 Rhythm: regular Heart Sounds: Present: S1 & S2. Absent: rub, click - Extremities Extremities: no ischemia, pulses symmetrical, No edema Peripheral Pulses: within normal limits - Abdominal General gastrointestinal: Present: soft, non-tender, non-distended, normal bowel sounds Female genitourinary: Present: normal - Integumentary Integumentary: Present: clear, warm, dry - Musculoskeletal Musculoskeletal: gait normal, strength equal bilaterally - Psychiatric Psychiatric: appropriate mood/affect, intact judgment & insight - Neurologic Neurologic: CNII-XII intact, moves all extremities - Allied Health Allied health notes reviewed: nursing, case management Results - Labs CBC & Chem 7: 11/17/20 05:20 11/17/20 05:20 Labs: Laboratory Last Values WBC 8.1 K/mm3 (4.5-11.0) 11/16/20 10:07 RBC 4.23 M/mm3 (3.65-5.03) 11/16/20 10:07 Hgb 13.2 gm/dl (10.1-14.3) 11/16/20 10:07 Hct 39.2 % (30.3-42.9) 11/16/20 10:07 MCV 93 fl (79-97) 11/16/20 10:07 MCH 31 pg (28-32) 11/16/20 10:07 MCHC 34 % (30-34) 11/16/20 10:07 RDW 12.7 % (13.2-15.2) L 11/16/20 10:07 Plt Count 206 K/mm3 (140-440) 11/16/20 10:07 Lymph % (Auto) 21.8 % (13.4-35.0) 11/16/20 10:07 Hardy % (Auto) 6.7 % (0.0-7.3) 11/16/20 10:07 Eos % (Auto) 0.0 % (0.0-4.3) 11/16/20 10:07 Baso % (Auto) 2.1 % (0.0-1.8) H 11/16/20 10:07 Lymph # (Auto) 1.8 K/mm3 (1.2-5.4) 11/16/20 10:07 Hardy # (Auto) 0.5 K/mm3 (0.0-0.8) 11/16/20 10:07 Eos # (Auto) 0.0 K/mm3 (0.0-0.4) 11/16/20 10:07 Baso # (Auto) 0.2 K/mm3 (0.0-0.1) H 11/16/20 10:07 Seg Neutrophils % 69.4 % (40.0-70.0) 11/16/20 10:07 Seg Neutrophils # 5.6 K/mm3 (1.8-7.7) 11/16/20 10:07 Sodium 134 mmol/L (137-145) L 11/16/20 10:07 Potassium 4.1 mmol/L (3.6-5.0) 11/16/20 10:07 Chloride 98.5 mmol/L (98-107) 11/16/20 10:07 Carbon Dioxide 25 mmol/L (22-30) 11/16/20 10:07 Anion Gap 15 mmol/L 11/16/20 10:07 BUN 11 mg/dL (7-17) 11/16/20 10:07 Creatinine 1.0 mg/dL (0.6-1.2) 11/16/20 10:07 Estimated GFR > 60 ml/min 11/16/20 10:07 BUN/Creatinine Ratio 11 % 11/16/20 10:07 Glucose 109 mg/dL (65-100) H 11/16/20 14:18 Lactic Acid 1.20 mmol/L (0.7-2.0) 11/16/20 14:18 Calcium 8.7 mg/dL (8.4-10.2) 11/16/20 10:07 Ferritin 436.2 ng/mL (10.0-200.0) H 11/16/20 14:18 Total Bilirubin 1.10 mg/dL (0.1-1.2) 11/16/20 10:07 AST 28 units/L (5-40) 11/16/20 10:07 ALT 45 units/L (7-56) 11/16/20 10:07 Alkaline Phosphatase 63 units/L (35-129) 11/16/20 10:07 Lactate Dehydrogenase 196 units/L (91-180) H 11/16/20 14:18 C-Reactive Protein 13.30 mg/dL (0.00-1.30) H 11/16/20 14:18 Total Protein 6.8 g/dL (6.3-8.2) 11/16/20 10:07 Albumin 3.8 g/dL (3.9-5) L 11/16/20 10:07 Albumin/Globulin Ratio 1.3 % 11/16/20 10:07 Urine Color Yellow (Yellow) 11/16/20 13:47 Urine Turbidity Clear (Clear) 11/16/20 13:47 Urine pH 5.0 (5.0-7.0) 11/16/20 13:47 Ur Specific [place] 1.009 (1.003-1.030) 11/16/20 13:47 Urine Protein <15 mg/dl mg/dL (Negative) 11/16/20 13:47 Urine Glucose (UA) Neg mg/dL (Negative) 11/16/20 13:47 Urine Ketones Neg mg/dL (Negative) 11/16/20 13:47 Urine Blood Neg (Negative) 11/16/20 13:47 Urine Nitrite Neg (Negative) 11/16/20 13:47 Urine Bilirubin Neg (Negative) 11/16/20 13:47 Urine Urobilinogen < 2.0 mg/dL (<2.0) 11/16/20 13:47 Ur Leukocyte Esterase Neg (Negative) 11/16/20 13:47 Urine WBC (Auto) < 1.0 /HPF (0.0-6.0) 11/16/20 13:47 Urine RBC (Auto) 1.0 /HPF (0.0-6.0) 11/16/20 13:47 U Epithel Cells (Auto) 5.0 /HPF (0-13.0) 11/16/20 13:47 Urine Bacteria (Auto) 1+ /HPF (Negative) 11/16/20 13:47 Urine Mucus Few /HPF 11/16/20 13:47 Microbiology: Microbiology 11/16/20 11:57 Peripheral/Venous Blood Culture - Preliminary Culture in Progress 11/16/20 11:57 Peripheral/Venous Blood Culture - Preliminary Culture in Progress - Imaging and Cardiology Imaging and Cardiology: CXR Support devices: None. Heart: Within normal limits. Lungs/Pleura: Somewhat patchy bilateral airspace opacities are noted. These are mild to moderate in severity. No pleural abnormality. IMPRESSION: 1. Probable bilateral pneumonia. Beth/IV: IV Catheter Type [Right INT / Saline Lock Antecubital] Assessment and Plan Advance Directives: Yes (Full code) VTE prophylaxis?: Chemical Plan of care discussed with patient/family: Yes - Patient Problems (1) Acute respiratory failure with hypoxia Current Visit: Yes Status: Acute Plan to address problem: Oxygen supplements as required Hypoxia secondary to Covid pneumonia (2) Pneumonia due to COVID-19 virus Current Visit: Yes Status: Acute Plan to address problem: Patient is possible Covid positive Coronavirus PCR requested IV Decadron 8 mg every 24 initiated (3) Bilateral pneumonia Current Visit: Yes Status: Acute Plan to address problem: Treat as community-acquired pneumonia If procalcitonin normal then discontinue antibiotics (4) HIV (human immunodeficiency virus infection) Current Visit: Yes Status: Acute Qualifiers: HIV symptom status: unspecified Qualified Code(s): B20 - Human immunodeficiency virus [HIV] disease Plan to address problem: Continue antiretrovirals (5) DVT prophylaxis Current Visit: Yes Status: Acute Plan to address problem: On Lovenox and GI prophylaxis
[2020-11-16] MEDS ORDERED: HYDROmorphone 1 MG/1 ML INJ IV PRN (21:29)
[2020-11-17] MEDS: guaiFENesin DM 200/20 MG ORAL LIQD 10 ML PO PRN ×3 (06:08→21:38)
[2020-11-17 07:02] LABS: Basophils % (Auto) 0.1 % (0.0-1.8); Hematocrit 37.7 % (30.3-42.9); Hemoglobin 12.9 gm/dl (10.1-14.3); Lymphocytes # (Auto) 1.7 K/mm3 (1.2-5.4); Lymphocytes % (Auto) 19.5 % (13.4-35.0); Mean Corpuscular HGB Conc 34 % (30-34); Mean Corpuscular Volume 91 fl (79-97); Monocytes # (Auto) 0.6 K/mm3 (0.0-0.8); Monocytes % (Auto) 6.4 % (0.0-7.3); Platelet Count 209 K/mm3 (140-440); Red Blood Count 4.13 M/mm3 (3.65-5.03); Red Cell Distribution Width 12.5 % (13.2-15.2)
[2020-11-17 07:23] LABS: Alanine Aminotransferase 37 units/L (7-56); Albumin 3.5 g/dL (3.9-5); Blood Urea Nitrogen 11 mg/dL (7-17); Calcium 8.2 mg/dL (8.4-10.2); Hemolysis Index 3
[2020-11-17 07:24] LABS: BUN/Creatinine Ratio 18
[2020-11-17] MEDS: AZITHROMYCIN/NS 500 MG/250 ML 500 MG/250 ML BAG IV SCH (09:21)
[2020-11-17] MEDS: cefTRIAXone/NS 2 GM/100 ML 2 GM/100 ML BAG IV SCH (09:21)
[2020-11-17] MEDS ORDERED: dexAMETHasone 4 MG/ML VIAL IV SCH (10:00)
[2020-11-17] MEDS ORDERED: BENZONATATE 100 MG CAP PO PRN (12:22)
[2020-11-17] MEDS ORDERED: traMADol 50 MG TAB PO PRN (12:22)
[2020-11-17] MEDS ORDERED: [UNRECOGNIZED DRUG - OTHER] PO SCH (12:30)
[2020-11-17] MEDS: oxyCODONE /ACETAMINOPHEN 5-325MG TAB PO PRN ×2 (13:48→21:38)
--- NOTE | 2020-11-18 00:53 | Progress Note ---
Assessment and Plan - Patient Problems (1) Acute respiratory failure with hypoxia Current Visit: Yes Status: Acute Plan to address problem: Oxygen supplements as required Hypoxia secondary to Covid pneumonia (2) Pneumonia due to COVID-19 virus Current Visit: Yes Status: Acute Plan to address problem: Patient is Covid positive IV Decadron 8 mg every 24 initiated (3) Bilateral pneumonia Current Visit: Yes Status: Acute Plan to address problem: Treat as community-acquired pneumonia If procalcitonin normal then discontinue antibiotics (4) HIV (human immunodeficiency virus infection) Current Visit: Yes Status: Acute Qualifiers: HIV symptom status: unspecified Qualified Code(s): B20 - Human immunodeficiency virus [HIV] disease Plan to address problem: Continue antiretrovirals (5) DVT prophylaxis Current Visit: Yes Status: Acute Plan to address problem: On Lovenox and GI prophylaxis Subjective Date of service: 11/17/20 Principal diagnosis: Bilateral pneumonia Interval history: 30-year-old female with history of HIV comes in for increasing shortness of breath cough fever and generalized weakness. Patient states her symptoms started about 7 days ago and are getting worse since yesterday. Patient has sole dwight positive for Covid on Wednesday which is November 11 and today is November 16. Patient is desaturating on walking. Day #2 11/17/2020 Patient is Covid positive Patient on 2 L nasal cannula oxygen Objective - Constitutional Vitals: Vital Signs - 12hr 11/17/20 21:01 Temperature 97.4 F L Pulse Rate 64 Respiratory 17 Rate Blood Pressure 105/68 O2 Sat by Pulse 100 Oximetry General appearance: Present: no acute distress, well-nourished - EENT Eyes: PERRL, EOM intact ENT: hearing intact, clear oral mucosa Ears: bilateral: normal - Neck Neck: supple, normal ROM - Respiratory Respiratory effort: normal Respiratory: bilateral: CTA - Breasts Breasts: normal - Cardiovascular Heart rate: 78 Rhythm: regular Heart Sounds: Present: S1 & S2. Absent: gallop, rub Extremities: pulses intact, No edema, normal color, Full ROM - Gastrointestinal General gastrointestinal: Present: soft, non-tender, non-distended, normal bowel sounds - Genitourinary Female genitourinary: normal - Integumentary Integumentary: clear, warm, dry - Musculoskeletal Musculoskeletal: 1, strength equal bilaterally - Neurologic Neurologic: moves all extremities - Psychiatric Psychiatric: memory intact, appropriate mood/affect, intact judgment & insight - Labs CBC & Chem 7: 11/17/20 05:20 11/17/20 05:20 Labs: Abnormal lab results 11/17/20 11/17/20 11/17/20 Range/Units 05:20 05:20 10:28 RDW 12.5 L (13.2-15.2) % Seg Neutrophils % 74.0 H (40.0-70.0) % Glucose 123 H (65-100) mg/dL Calcium 8.2 L (8.4-10.2) mg/dL Albumin 3.5 L (3.9-5) g/dL Coronavirus (PCR) Positive A (Negative)
[2020-11-18] MEDS ORDERED: DEXAMETHASONE 4 MG TAB PO SCH (10:00)
[2020-11-18] MEDS: cefTRIAXone/NS 2 GM/100 ML 2 GM/100 ML BAG IV SCH (10:02)
--- NOTE | 2020-11-18 10:36 | Discharge Summary ---
Providers - Providers Date of Admission: 11/16/20 14:05 Date of discharge: 11/18/20 Attending physician: MALICK MANNING Primary care physician: ALEJO VEGA MD Hospitalization Condition: Stable Disposition: DC-30 STILL A PATIENT - Discharge Diagnoses (1) Acute respiratory failure with hypoxia Status: Acute (2) Pneumonia due to COVID-19 virus Status: Acute (3) Bilateral pneumonia Status: Acute (4) HIV (human immunodeficiency virus infection) Status: Acute Qualifiers: HIV symptom status: unspecified Qualified Code(s): B20 - Human immuno deficiency virus [HIV] disease (5) DVT prophylaxis Status: Acute Exam - Constitutional Vitals: Temp Pulse Resp BP Pulse Ox 97.2 F L 61 18 105/72 99 11/18/20 03:50 11/18/20 03:50 11/18/20 03:50 11/18/20 03:50 11/18/20 03:50 Plan Follow up with: ALEJO VEGA MD [Primary Care Provider] - 3-5 Days
[2020-11-18] MEDS ORDERED: PNEUMOCOCCAL 23 Valent 0.5 ML VIAL IM ONE (12:00)
[2020-11-18] MEDS: AZITHROMYCIN/NS 500 MG/250 ML 500 MG/250 ML BAG IV SCH (13:58)
[2020-11-18 19:00] VITALS: BP 111/69
== END 2020-11-18 19:00 | disposition home or self-care (01) | DRG 177 ==
LOC: ED 08:56 → 3A 14:05
PROVIDERS: ADMIT Internal Medicine; ATTEND Internal Medicine
PROC: 3E0234Z Introduction of Serum, Toxoid and Vaccine into Muscle, Percutaneous Approach (ICD-10-PCS; principal; 2020-11-18)
DX: U07.1 COVID-19 (principal); J96.01 Acute respiratory failure with hypoxia; J12.82 Pneumonia due to coronavirus disease 2019; Z21 Asymptomatic human immunodeficiency virus [HIV] infection status; Z79.899 Other long term (current) drug therapy; Z90.49 Acquired absence of other specified parts of digestive tract; Z23 Encounter for immunization
CPT/HCPCS: 36415; 71046; 80053; 81001; 82140; 82728; 82947; 83036; 83615; 84145; 85025; 86140; 87040; 90732; 96361; 96365; 96366; 96375; 96376; G0378; J0456; J0696; J1100; J1170; J2405; J7030; J8540; U0003

== ENCOUNTER 2020-12-01 06:11 | Emergency (ER) | payer SELFPAY ==
[2020-12-01] MEDS ORDERED: ASPIRIN 325 MG TAB PO ONE (06:34)
[2020-12-01 07:03] LABS: Basophils # (Auto) 0.1 K/mm3 (0.0-0.1); Basophils % (Auto) 1.1 % (0.0-1.8); Eosinophils # (Auto) 0.1 K/mm3 (0.0-0.4); Eosinophils % (Auto) 0.8 % (0.0-4.3); Hematocrit 38.9 % (30.3-42.9); Hemoglobin 12.9 gm/dl (10.1-14.3); Lymphocytes # (Auto) 2.5 K/mm3 (1.2-5.4); Mean Corpuscular HGB Conc 33 % (30-34); Mean Corpuscular Volume 95 fl (79-97); Monocytes # (Auto) 0.4 K/mm3 (0.0-0.8); Monocytes % (Auto) 4.5 % (0.0-7.3); Platelet Count 188 K/mm3 (140-440)
[2020-12-01 07:40] LABS: BUN/Creatinine Ratio 23; Blood Urea Nitrogen 18 mg/dL (7-17); Calcium 8.9 mg/dL (8.4-10.2); Hemolysis Index 6
--- NOTE | 2020-12-01 07:43 | XRay Report ---
CHEST 2 VIEWS INDICATION / CLINICAL INFORMATION: Chest Pain. COMPARISON: 11/16/20. FINDINGS: SUPPORT DEVICES: None. HEART / MEDIASTINUM: The heart size and pulmonary vasculature are normal. The aorta is normal in w[place] todd. LUNGS / PLEURA: Mild patchy parenchymal opacities bilaterally have cleared. No new abnormality. No pl eural effusion. No pneumothorax. ADDITIONAL FINDINGS: No significant additional findings. IMPRESSION: No acute findings. Signer Name: Luis Barrios MD Signed: 12/01/2020 7:38 AM Workstation Name: [id number]
--- NOTE | 2020-12-01 07:47 | Emergency Department Report ---
ED Chest Pain HPI - General Chief Complaint: Chest Pain Stated Complaint: CHEST PAIN,ABD PAIN Time Seen by Provider: 12/01/20 07:33 Source: patient Mode of arrival: Ambulatory Limitations: No Limitations - History of Present Illness Initial Comments: This is a 30-year-old -Stateless female presents to the emergency department with complaint of a 3-day history of generalized chest tightness, as well as a 3-day history of abdominal discomfort and bloating. She has a past medical history of HIV and has a previous cholecystectomy. The patient was just admitted here about 2 weeks ago for bilateral pneumonia status post Covid 19. The patient has not taken anything for her current symptoms prior to presentation. She denies any tobacco or illicit drug use. She denies any problems with bowel or bladder, shortness of breath, fever, vomiting, vaginal bleeding or discharge. - Related Data Home Medications Medication Instructions Recorded Confirmed Last Taken Emtricitab/Rilpiviri/Tenof Ala 1 each PO 11/16/20 11/16/20 09:00 [Odefsey Tablet] Previous Rx's Medication Instructions Recorded Last Taken Type Azithromycin [Zithromax Z-JEFFY] 250 mg PO DAILY #6 tab 11/18/20 Unknown Rx Benzonatate [Tessalon Perles] 100 mg PO Q8HR #10 capsule 11/18/20 Unknown Rx Dexamethasone [Decadron] 6 mg PO QDAY #8 tablet 11/18/20 Unknown Rx Albuterol Mdi (or & Nicu Only) 2 puff IH QID PRN #8.5 gram 12/01/20 Unknown Rx [ProAir HFA Inhaler] Docusate Sodium [Colace] 100 mg PO BID PRN #20 capsule 12/01/20 Unknown Rx Allergies Allergy/AdvReac Type Severity Reaction Status Date / Time No Known Allergies Allergy Verified 11/10/20 10:41 Heart Score - HEART Score History: Slightly suspicious EKG: Normal Age: < 45 Risk factors: No known risk factors Troponin: < normal limit HEART Score: 0 - Critical Actions Critical Actions: 0-3 pts:0.9-1.7%risk of adverse cardiac event.Candidate for discharge ED Review of Systems ROS: Stated complaint: CHEST PAIN,ABD PAIN Other details as noted in HPI ED Past Medical Hx - Past Medical History Previous Medical History?: Yes Hx HIV: Yes (2012) Additional medical history: HIV. Pneumonia - Surgical History Past Surgical History?: Yes Hx Cholecystectomy: Yes - Social History Smoking Status: Never Smoker Substance Use Type: None - Medications Home Medications: Home Medications Medication Instructions Recorded Confirmed Last Taken Type Emtricitab/Rilpiviri/Tenof Ala 1 each PO 11/16/20 11/16/20 09:00 History [Odefsey Tablet] Azithromycin [Zithromax Z-JEFFY] 250 mg PO DAILY #6 tab 11/18/20 Unknown Rx Benzonatate [Tessalon Perles] 100 mg PO Q8HR #10 capsule 11/18/20 Unknown Rx Dexamethasone [Decadron] 6 mg PO QDAY #8 tablet 11/18/20 Unknown Rx Albuterol Mdi (or & Nicu Only) 2 puff IH QID PRN #8.5 gram 12/01/20 Unknown Rx [ProAir HFA Inhaler] Docusate Sodium [Colace] 100 mg PO BID PRN #20 capsule 12/01/20 Unknown Rx ED Physical Exam - General Limitations: No Limitations - Other Other exam information: GENERAL: The patient is well-developed well-nourished. HENT: Normocephalic. Atraumatic. Patient has moist mucous membranes. EYES: Extraocular motions are intact. NECK: Supple. Trachea is midline. CHEST/LUNGS: Clear to auscultation. There is no respiratory distress noted. HEART/CARDIOVASCULAR: Regular. There is no tachycardia. There is no murmur. ABDOMEN: Abdomen is soft. Mild generalized abdominal tenderness to palpation. No guarding. Patient has normal bowel sounds. There is no abdominal distention. SKIN: Skin is warm and dry. NEURO: The patient is awake, alert, and oriented. The patient is cooperative. The patient has no focal neurologic deficits. Normal speech. MUSCULOSKELETAL: There is no tenderness or deformity. There is no limitation range of motion. ED Course Vital Signs 12/01/20 12/01/20 12/01/20 06:17 08:47 08:56 Temperature 99.1 F Pulse Rate 95 H Pulse Rate [ 94 H Anterior Bilateral Throughout] Respiratory 18 18 Rate Respiratory 22 Rate [Anterior Bilateral Throughout] Blood Pressure 106/65 Blood Pressure [Right] O2 Sat by Pulse 98 Oximetry 12/01/20 11:05 Temperature 98.9 F Pulse Rate 90 Pulse Rate [ Anterior Bilateral Throughout] Respiratory 18 Rate Respiratory Rate [Anterior Bilateral Throughout] Blood Pressure Blood Pressure 108/59 [Right] O2 Sat by Pulse 98 Oximetry BENSON score - Benson Score Age > 65: (0) No Aspirin use within the Past 7 Days: (0) No 3 or more CAD Risk Factors: (0) No 2 or more Angina events in past 24 hrs: (1) Yes Known CAD with more than 50% Stenosis: (0) No Elevated Cardiac Markers: (0) No ST Deviation Greater than 0.5mm: (0) No BENSON Score: 1 ED Medical Decision Making - Lab Data Result diagrams: 12/01/20 06:49 12/01/20 06:49 - EKG Data -: EKG Interpreted by Me EKG shows normal: sinus rhythm, axis, intervals, QRS complexes, ST-T waves Rate: normal - EKG Data When compared to previous EKG there are: previous EKG unavailable Interpretation: normal EKG - Radiology Data Radiology results: image reviewed interpreted by me: Chest x-ray does not show any acute process. There are no pleural effusions, obvious pneumonia and there is no pneumothorax. No significant cardiomegaly. Abdominal x-ray shows nonspecific nonobstructive bowel gas. There is increased stool volume throughout the abdomen. - Medical Decision Making This patient presents with a 3-day history of some generalized chest discomfort that she describes as a tightness, as well as some abdominal discomfort and bloating. Patient does not appear in any respiratory or acute distress. The abdomen is soft, nondistended and nontoxic in appearance. An EKG was done through triage that does not have any morphology consistent with ST elevation myocardial infarction or any dysrhythmia. Chest x-ray does not show any pneumonia, pleural effusions, pneumothorax, focal consolidation, or any other acute process. Abdominal x-ray shows nonspecific nonobstructive bowel gas. There is increased stool volume throughout the abdomen. Patient's labs have been unremarkable including CBC, metabolic panel, negative troponins x2. She was given a breathing treatment and upon reevaluation says that the chest tightness has essentially resolved. The patient is seen resting comfortably playing on her phone multiple times. Vital signs have been reassuring throughout her ED course. For all these reasons patient appears safe for discharge home at this time. She has been given outpatient referrals for primary care and has been given 1 for cardiology. She has been given a prescription for an albuterol inhaler and Colace. She will return to the emergency department with any worsening of her symptoms or with any acute distress. Critical Care Time: No Critical care attestation.: If time is entered above; I have spent that time in minutes in the direct care of this critically ill patient, excluding procedure time. ED Disposition Clinical Impression: Abdominal bloating, Increased stool volume, Atypical chest pain Disposition: - TO HOME OR SELFCARE Is pt being admited?: No Condition: Stable Instructions: Abdominal Bloating, Nonspecific Chest Pain, Adult, Constipation, Adult, Chest Pain (ED) Additional Instructions: Please follow-up with a primary care physician in the next few days. I am giving you a few different referrals for primary care physicians and clinics. I have also given you a referral for a local despatch clerk, Dr. Ponce, to follow-up regarding your chest pains. Return to the emergency department with any worsening of your symptoms, new or concerning symptoms not addressed during this current emergency department visit, or with any acute distress. Prescriptions: Docusate Sodium [Colace] 100 mg PO BID PRN #20 capsule PRN Reason: Constipation Albuterol Mdi (or & Nicu Only) [ProAir HFA Inhaler] 2 puff IH QID PRN #8.5 gram PRN Reason: Shortness Of Breath Referrals: JAMES LAWS MD [Staff Physician] - 2-3 Days KATHYA TORRES MD [Staff Physician] - 2-3 Days [facility] [Outside] - 2-3 Days [facility] [Provider Group] - 2-3 Days LAUREN PONCE MD [Staff Physician] - 2-3 Days Time of Disposition: 10:16
[2020-12-01] MEDS ORDERED: IPRATROPIUM/ALBUTEROL SULFATE 3 ML AMPUL.NEB IH ONE (07:55)
--- NOTE | 2020-12-01 08:18 | XRay Report ---
ABDOMEN 1 VIEW INDICATION / CLINICAL INFORMATION: Abd pain, bloated. COMPARISON: None available. FINDINGS: TUBES / LINES: None. BOWEL GAS PATTERN: No significant abnormality. FREE AIR / EXTRALUMINAL GAS: None seen. ADDITIONAL FINDINGS: No significant additional findings. IMPRESSION: 1. No significant abnormality. Signer Name: Sunny Gamble MD Signed: 12/01/2020 8:14 AM Workstation Name: [id number]
[2020-12-01 09:21] LABS: Bilirubin,Urine NEG (Negative); Blood,Urine NEG (Negative); Color,Urine Yellow (Yellow); Protein,Urine <15 mg/dL mg/dL (Negative); Urobilinogen,Urine < 2.0 mg/dL (<2.0)
[2020-12-01] MEDS ORDERED: KETOROLAC 30 MG/1 ML INJ IM ONE (09:48)
[2020-12-01 09:52] LABS: Alanine Aminotransferase 20 units/L (7-56); Albumin 3.7 g/dL (3.9-5)
[2020-12-01 09:53] LABS: Bilirubin,Direct < 0.2 mg/dL (0-0.2)
[2020-12-01] MEDS ORDERED: DEXAMETHASONE 4 MG TAB PO ONE (10:12)
[2020-12-01 11:05] VITALS: BP 108/59
== END 2020-12-01 11:05 | disposition home or self-care (01) ==
LOC: ED 06:11
DX: R19.5 Other fecal abnormalities (principal); R07.89 Other chest pain; R10.9 Unspecified abdominal pain; Z79.899 Other long term (current) drug therapy; Z21 Asymptomatic human immunodeficiency virus [HIV] infection status; Z90.49 Acquired absence of other specified parts of digestive tract
CPT/HCPCS: 36415; 71046; 74019; 80048; 80076; 81001; 83690; 84484; 84703; 85025; 93005; 94640; 96372; 99284; J1885; J8540; 94644

== ENCOUNTER 2021-02-21 09:04 | Emergency (ER) | payer SELFPAY ==
[2021-02-21 09:44] VITALS: BP 110/65
--- NOTE | 2021-02-21 10:29 | Event Note ---
ED Screening Note Date of service: 02/21/21 Time: 10:27 ED Screening Note: Pt c/o cough and congestion x 2 weeks worsening states hemoptysis last night denies fever hx of HIV-currently on antiretrovirals OTC meds not helping per pt covid+ in December-no recent testing done per pt This initial assessment/diagnostic orders/clinical plan/treatment(s) is/are subject to change based on patients health status, clinical progression and re- assessment by fellow clinical providers in the ED. Further treatment and workup at subsequent clinical providers discretion. Patient/guardian urged not to elope from the ED as their condition may be serious if not clinically assessed and managed. Initial orders include: labs CXR
[2021-02-21 11:09] LABS: Basophils # (Auto) 0.1 K/mm3 (0.0-0.1); Basophils % (Auto) 1.2 % (0.0-1.8); Eosinophils # (Auto) 0.3 K/mm3 (0.0-0.4); Hematocrit 39.1 % (30.3-42.9); Hemoglobin 13.5 gm/dl (10.1-14.3); Lymphocytes # (Auto) 2.2 K/mm3 (1.2-5.4); Lymphocytes % (Auto) 40.7 % (13.4-35.0); Mean Corpuscular HGB Conc 35 % (30-34); Mean Corpuscular Volume 91 fl (79-97); Monocytes # (Auto) 0.4 K/mm3 (0.0-0.8); Monocytes % (Auto) 6.8 % (0.0-7.3); Platelet Count 212 K/mm3 (140-440); Red Cell Distribution Width 13.3 % (13.2-15.2)
[2021-02-21 11:28] LABS: Alanine Aminotransferase 12 units/L (7-56); Albumin 4.2 g/dL (3.9-5); BUN/Creatinine Ratio 9; Blood Urea Nitrogen 8 mg/dL (7-17); Calcium 8.6 mg/dL (8.4-10.2); Hemolysis Index 9
--- NOTE | 2021-02-21 11:44 | XRay Report ---
CHEST 2 VIEWS INDICATION / CLINICAL INFORMATION: cough. COMPARISON: None available. FINDINGS: SUPPORT DEVICES: None. HEART / MEDIASTINUM: No significant abnormality. LUNGS / PLEURA: Nonspecific opacities are seen along the right lower lobe with otherwise clear lungs. No significant pleural effusion. No pneumothorax. ADDITIONAL FINDINGS: No significant additional findings. IMPRESSION: Possible right lower lobe pneumonia given the patient's cough. Follow-up PA and lateral chest radiogr aphs in 3-4 weeks are recommended for reevaluation. Signer Name: Ricky Bingham MD Signed: 02/21/2021 11:40 AM Workstation Name: [id number]
--- NOTE | 2021-02-21 15:05 | Emergency Department Report ---
- General Chief Complaint: Upper Respiratory Infection Stated Complaint: COUGH Time Seen by Provider: 02/21/21 10:14 Source: patient Mode of arrival: Ambulatory Limitations: No Limitations - History of Present Illness Initial Comments: Chief complaint: Cough for 2 weeks HPI: This is a 30-year-old female with history of HIV on ART, Covid infection earlier this year, who presents with cough chest congestion. Mild amount of bloody sputum on yesterday. She denies fever. Denies shortness of breath. [id number] medications did not provide any improvement. MD Complaint: cough -: Gradual, week(s) (2 weeks) Severity: mild Consistency: constant Improves With: nothing Worsens With: nothing Associated Symptoms: denies other symptoms - Related Data Home Medications Medication Instructions Recorded Confirmed Last Taken Emtricitab/Rilpiviri/Tenof Ala 1 each PO 11/16/20 11/16/20 09:00 [Odefsey Tablet] Previous Rx's Medication Instructions Recorded Last Taken Type Azithromycin [Zithromax Z-JEFFY] 250 mg PO DAILY #6 tab 11/18/20 Unknown Rx Benzonatate [Tessalon Perles] 100 mg PO Q8HR #10 capsule 11/18/20 Unknown Rx Dexamethasone [Decadron] 6 mg PO QDAY #8 tablet 11/18/20 Unknown Rx Albuterol Mdi (or & Nicu Only) 2 puff IH QID PRN #8.5 gram 12/01/20 Unknown Rx [ProAir HFA Inhaler] Docusate Sodium [Colace] 100 mg PO BID PRN #20 capsule 12/01/20 Unknown Rx Doxycycline Hyclate [Doxycycline 100 mg PO Q12HR 7 Days #14 tab 02/21/21 Unknown Rx Hyclate TAB] Hydrocodone/Chlorphen P-Stirex 5 ml PO BID #115 ml 02/21/21 Unknown Rx [Tussionex Pennkinetic Susp] Allergies Allergy/AdvReac Type Severity Reaction Status Date / Time No Known Allergies Allergy Verified 11/10/20 10:41 ED Review of Systems ROS: Stated complaint: COUGH Other details as noted in HPI Comment: All other systems reviewed and negative Constitutional: denies: fever, malaise Respiratory: cough. denies: wheezing Cardiovascular: denies: chest pain ED Past Medical Hx - Past Medical History Previous Medical History?: Yes Hx HIV: Yes (2012) Additional medical history: HIV - Surgical History Past Surgical History?: Yes Hx Cholecystectomy: Yes - Social History Smoking Status: Never Smoker Substance Use Type: None - Medications Home Medications: Home Medications Medication Instructions Recorded Confirmed Last Taken Type Emtricitab/Rilpiviri/Tenof Ala 1 each PO 11/16/20 11/16/20 09:00 History [Odefsey Tablet] Azithromycin [Zithromax Z-JEFFY] 250 mg PO DAILY #6 tab 11/18/20 Unknown Rx Benzonatate [Tessalon Perles] 100 mg PO Q8HR #10 capsule 11/18/20 Unknown Rx Dexamethasone [Decadron] 6 mg PO QDAY #8 tablet 11/18/20 Unknown Rx Albuterol Mdi (or & Nicu Only) 2 puff IH QID PRN #8.5 gram 12/01/20 Unknown Rx [ProAir HFA Inhaler] Docusate Sodium [Colace] 100 mg PO BID PRN #20 capsule 12/01/20 Unknown Rx Doxycycline Hyclate [Doxycycline 100 mg PO Q12HR 7 Days #14 tab 02/21/21 Unknown Rx Hyclate TAB] Hydrocodone/Chlorphen P-Stirex 5 ml PO BID #115 ml 02/21/21 Unknown Rx [Tussionex Pennkinetic Susp] ED Physical Exam - General Limitations: No Limitations General appearance: alert, in no apparent distress - Head Head exam: Present: atraumatic, normocephalic - Eye Eye exam: Present: normal appearance - ENT ENT exam: Present: mucous membranes moist - Neck Neck exam: Present: normal inspection, full ROM - Respiratory Respiratory exam: Present: normal lung sounds bilaterally. Absent: respiratory distress, wheezes, rales, rhonchi, stridor - Cardiovascular Cardiovascular Exam: Present: regular rate, normal rhythm, normal heart sounds. Absent: systolic murmur, diastolic murmur, rubs, gallop - GI/Abdominal GI/Abdominal exam: Present: soft, normal bowel sounds. Absent: distended, tenderness, guarding, rebound - Extremities Exam Extremities exam: Present: normal inspection - Neurological Exam Neurological exam: Present: alert, oriented X3 - Psychiatric Psychiatric exam: Present: normal affect, normal mood - Skin Skin exam: Present: warm, dry, intact, normal color. Absent: rash ED Course Vital Signs 02/21/21 09:42 Temperature 98.6 F Pulse Rate 77 Respiratory 20 Rate Blood Pressure 110/65 O2 Sat by Pulse 100 Oximetry ED Medical Decision Making - Lab Data Result diagrams: 02/21/21 10:50 02/21/21 10:50 Laboratory Results - last 24 hr 02/21/21 02/21/21 10:50 10:50 WBC 5.3 RBC 4.30 Hgb 13.5 Hct 39.1 MCV 91 MCH 31 MCHC 35 H RDW 13.3 Plt Count 212 Lymph % (Auto) 40.7 H [place] % (Auto) 6.8 Eos % (Auto) 5.0 H Baso % (Auto) 1.2 Lymph # (Auto) 2.2 [place] # (Auto) 0.4 Eos # (Auto) 0.3 Baso # (Auto) 0.1 Seg Neutrophils % 46.3 Seg Neutrophils # 2.5 Sodium 135 L Potassium 4.1 Chloride 103.9 Carbon Dioxide 24 Anion Gap 11 BUN 8 Creatinine 0.9 Estimated GFR > 60 BUN/Creatinine Ratio 9 Glucose 81 Calcium 8.6 Total Bilirubin 0.80 AST 14 ALT 12 Alkaline Phosphatase 63 Total Protein 6.9 Albumin 4.2 Albumin/Globulin Ratio 1.6 - Radiology Data Radiology results: report reviewed Chest radiograph 2 views: Nonspecific opacity seen in the right lower lobe with otherwise clear lungs, - Medical Decision Making Community-acquired pneumonia: Patient is diagnosed with Covid infection 3 months ago at this hospital. However reinfection is possible. Will treat with doxycycline in Tussionex for community-acquired pneumonia. Atypical infection unlikely considering patient should be immunocompetent if compliant with ART. Critical care attestation.: If time is entered above; I have spent that time in minutes in the direct care of this critically ill patient, excluding procedure time. ED Disposition Clinical Impression: Community acquired pneumonia, HIV (human immunodeficiency virus infection), Suspected COVID-19 virus infection Disposition: DC-01 TO HOME OR SELFCARE Is pt being admited?: No Does the pt Need Aspirin: No Condition: Stable Instructions: Bacterial Pneumonia (ED), Community-Acquired Pneumonia, Adult Prescriptions: Doxycycline Hyclate [Doxycycline Hyclate TAB] 100 mg PO Q12HR 7 Days #14 tab Hydrocodone/Chlorphen P-Stirex [Tussionex Pennkinetic Susp] 5 ml PO BID #115 ml Referrals: KATHYA TORRES MD [Staff Physician] - 3-5 Days
== END 2021-02-21 15:17 | disposition home or self-care (01) ==
LOC: ED 09:04
DX: J16.8 Pneumonia due to other specified infectious organisms (principal); Z21 Asymptomatic human immunodeficiency virus [HIV] infection status; Z20.822 Contact with and (suspected) exposure to COVID-19; Z90.49 Acquired absence of other specified parts of digestive tract; Z79.899 Other long term (current) drug therapy
CPT/HCPCS: 36415; 71046; 80053; 85025; 99283

== ENCOUNTER 2021-03-01 06:41 | Observation (INO) | payer OTHER, SELFPAY ==
[2021-03-01] MEDS ORDERED: ASPIRIN 81 MG TAB CHEW PO ONE ×2 (07:58→23:00)
--- NOTE | 2021-03-01 08:01 | Emergency Department Report ---
<LEE ANN REED - Last Filed: 03/01/21 10:40> ED General Adult HPI - General Chief complaint: Chest Pain Stated complaint: CHEST PAIN Time Seen by Provider: 03/01/21 07:54 - Related Data Home Medications Medication Instructions Recorded Confirmed Last Taken Emtricitab/Rilpiviri/Tenof Ala 1 each PO 11/16/20 11/16/20 09:00 [Odefsey Tablet] Previous Rx's Medication Instructions Recorded Last Taken Type Azithromycin [Zithromax Z-JEFFY] 250 mg PO DAILY #6 tab 11/18/20 Unknown Rx Benzonatate [Tessalon Perles] 100 mg PO Q8HR #10 capsule 11/18/20 Unknown Rx Dexamethasone [Decadron] 6 mg PO QDAY #8 tablet 11/18/20 Unknown Rx Albuterol Mdi (or & Nicu Only) 2 puff IH QID PRN #8.5 gram 12/01/20 Unknown Rx [ProAir HFA Inhaler] Docusate Sodium [Colace] 100 mg PO BID PRN #20 capsule 12/01/20 Unknown Rx Doxycycline Hyclate [Doxycycline 100 mg PO Q12HR 7 Days #14 tab 02/21/21 Unknown Rx Hyclate TAB] Hydrocodone/Chlorphen P-Stirex 5 ml PO BID #115 ml 02/21/21 Unknown Rx [Tussionex Pennkinetic Susp] Allergies Allergy/AdvReac Type Severity Reaction Status Date / Time No Known Allergies Allergy Verified 11/10/20 10:41 ED Past Medical Hx - Medications Home Medications: Home Medications Medication Instructions Recorded Confirmed Last Taken Type Emtricitab/Rilpiviri/Tenof [place] 1 each PO 11/16/20 11/16/20 09:00 History [Odefsey Tablet] Azithromycin [Zithromax Z-JEFFY] 250 mg PO DAILY #6 tab 11/18/20 Unknown Rx Benzonatate [Tessalon Perles] 100 mg PO Q8HR #10 capsule 11/18/20 Unknown Rx Dexamethasone [Decadron] 6 mg PO QDAY #8 tablet 11/18/20 Unknown Rx Albuterol Mdi (or & Nicu Only) 2 puff IH QID PRN #8.5 gram 12/01/20 Unknown Rx [ProAir HFA Inhaler] Docusate Sodium [Colace] 100 mg PO BID PRN #20 capsule 12/01/20 Unknown Rx Doxycycline Hyclate [Doxycycline 100 mg PO Q12HR 7 Days #14 tab 02/21/21 Unknown Rx Hyclate TAB] Hydrocodone/Chlorphen P-Stirex 5 ml PO BID #115 ml 02/21/21 Unknown Rx [Tussionex Pennkinetic Susp] ED Medical Decision Making - Lab Data Result diagrams: 03/01/21 08:13 03/01/21 08:13 Laboratory Results - last 24 hr 03/01/21 03/01/21 03/01/21 08:13 08:13 08:13 WBC 6.7 RBC 4.24 Hgb 13.3 Hct 38.2 MCV 90 MCH 31 MCHC 35 H RDW 13.3 Plt Count 209 Lymph % (Auto) 35.7 H [place] % (Auto) 7.6 H Eos % (Auto) 5.2 H Baso % (Auto) 1.4 Lymph # (Auto) 2.4 [place] # (Auto) 0.5 Eos # (Auto) 0.3 Baso # (Auto) 0.1 Seg Neutrophils % 50.1 Seg Neutrophils # 3.3 PT 13.6 INR 1.05 APTT 30.1 D-Dimer 245.02 H Sodium 135 L Potassium 4.1 Chloride 102.7 Carbon Dioxide 23 Anion Gap 13 BUN 15 Creatinine 0.9 Estimated GFR > 60 BUN/Creatinine Ratio 17 Glucose 71 Calcium 9.0 Magnesium 2.00 Total Bilirubin 0.60 AST 17 ALT 15 Alkaline Phosphatase 64 Troponin T 0.046 H Total Protein 7.3 Albumin 4.2 Albumin/Globulin Ratio 1.4 Triglycerides 103 Cholesterol 152 LDL Cholesterol Direct 98 HDL Cholesterol 48 Cholesterol/HDL Ratio 3.16 HCG, Qual 03/01/21 08:13 WBC RBC Hgb Hct MCV MCH MCHC RDW Plt Count Lymph % (Auto) [place] % (Auto) Eos % (Auto) Baso % (Auto) Lymph # (Auto) [place] # (Auto) Eos # (Auto) Baso # (Auto) Seg Neutrophils % Seg Neutrophils # PT INR APTT D-Dimer Sodium Potassium Chloride Carbon Dioxide Anion Gap BUN Creatinine Estimated GFR BUN/Creatinine Ratio Glucose Calcium Magnesium Total Bilirubin AST ALT Alkaline Phosphatase Troponin T Total Protein Albumin Albumin/Globulin Ratio Triglycerides Cholesterol LDL Cholesterol Direct HDL Cholesterol Cholesterol/HDL Ratio HCG, Qual Negative ED Disposition Clinical Impression: Elevated troponin, History of HIV infection, History of COVID-19 Chest pain Qualifiers: Chest pain type: unspecified Qualified Code(s): R07.9 - Chest pain, unspecified Disposition: DC-09 OP ADMIT IP TO THIS HOSP Condition: Stable <MAGDY QUINTERO - Last Filed: 03/01/21 14:13> ED General Adult HPI - General Source: patient Mode of arrival: Ambulatory Limitations: No Limitations - History of Present Illness Initial comments: 30-year-old female patient with history of HIV, COVID-19 pneumonia, and acute respiratory failure with hypoxia earlier this year presents to the emergency department with complaints of pleuritic chest pain with associated dyspnea starting this morning. Pain is worse with inspiration. No history of similar symptoms. No history of hypertension, hyperlipidemia, diabetes. No history of tobacco use. No additional venous thromboembolism risk factors identified on history. Pt states last CD4 count was approximately 840. Denies fever, chills, cough, wheezing, hemoptysis, palpitations, syncope, lower extremity pain/swelling. Denies all other complaints at this time. ED Review of Systems ROS: Stated complaint: CHEST PAIN Other details as noted in HPI Other: GENERAL: Negative for fever, chills, weight change, anorexia, fatigue. ENT: Negative for ear pain, difficulty hearing, sore throat, nasal congestion, epistaxis. CARDIOVASCULAR: Positive for chest pain. PULMONARY: Positive for shortness of breath. GASTROINTESTINAL: Negative for abdominal pain, nausea, vomiting, diarrhea, constipation. MUSCULOSKELETAL: Negative for joint pain, joint swelling, myalgias, back pain, neck pain. NEUROLOGICAL: Negative for headache, seizure, syncope, paresthesias, weakness. INTEGUMENTARY: Negative for erythema, rash, diaphoresis, laceration, ecchymosis. HEMATOLOGICAL: Negative for hemoptysis, hematemesis, hematochezia, hematuria. PSYCHIATRIC: Negative for hallucinations, suicidal ideation, homicidal ideation, anxiety, depression. ED Past Medical Hx - Past Medical History Previous Medical History?: Yes Hx HIV: Yes (2012) Additional medical history: HIV - Surgical History Hx Cholecystectomy: Yes - Social History Smoking Status: Never Smoker Substance Use Type: None ED Physical Exam - General Limitations: No Limitations - Other Other exam information: General: Awake and alert. No acute distress. Head: Atraumatic, normocephalic. Eyes: EOMI. Pupils are equal and round. Normal sclera and conjunctiva. ENT: Oral mucosa is moist. Normal pharyngeal exam. Neck: Supple. No lymphadenopathy. Pulmonary: No respiratory distress. Clear to auscultation bilaterally. Right anterior chest wall pain reproducible with palpation and deep inspiration. Cardiac: Regular rate and rhythm. Pulses are palpable and equal bilaterally. No lower extremity cyanosis or edema. Skin: Warm and dry. No rashes. Abdomen: Soft, non-tender, non-protuberant. No guarding, rigidity, or rebound. Bowel sounds are normal. No organomegaly or masses noted. Back: Normal alignment. No CVA tenderness. Extremities: Symmetrical. Full range of motion intact. Neurological: Alert and oriented, appropriately interactive, no focal deficits. Psych: Cooperative. Appropriate mood and affect. Speech is evenly metered. Thoughts are logically construed. ED Course Vital Signs 03/01/21 07:30 Temperature 98.5 F Pulse Rate 68 Respiratory 18 Rate Blood Pressure 117/70 O2 Sat by Pulse 100 Oximetry ED Medical Decision Making - Lab Data Result diagrams: 03/01/21 08:13 03/01/21 08:13 - Radiology Data [facility] [address] [place] [address] Cat Scan Report Signed Patient: WINTER BEE V MR#: [id number] : 1990 Acct:[id number] Age/Sex: 30 / F ADM Date: 03/01/21 Loc: ED Attending Dr: Ordering Physician: LAWRENCE OLSEN Date of Service: 03/01/21 Procedure(s): CT angio chest Accession Number(s): [id number] cc: LAWRENCE OLSEN CT angio chest INDICATION: Pleuritic chest pain, Dyspnea; Elevated D-dimer. TECHNIQUE: All CT scans at this location are performed using CT dose reduction for ALARA by means of automated exposure control. 3 plane MIP and 3-D reconstructions were produced. COMPARISON: None available. FINDINGS: No mediastinal, hilar or axillary adenopathy. No pleural fluid. There is suggestion of minimal, patchy parenchymal disease bilaterally. No evidence of pulmonary embolus. IMPRESSION: 1. Negative for pulmonary embolus. 2. Minimal, patchy parenchymal disease. Although certainly not convincing, very early viral pneumonia cannot be excluded. Signer Name: Deejay Read MD Signed: 03/01/2021 10:30 AM Workstation Name: [id number] Transcribed By: TM Dictated By: Deejay Read MD Electronically Authenticated By: Deejay Read MD Signed Date/Time: 03/01/21 1030 DD/ 1027 TD/TT: - Medical Decision Making EKG shows normal sinus rhythm with a ventricular rate of 69 bpm. Normal axis. Normal PA interval. Normal QT interval. Good R wave progression. New T wave inversion noted to lead III, not present on prior EKG earlier this year. Over read by attending emergency physician, who agrees with this interpretation. Differential diagnosis including but not limited to: acute coronary syndrome, cardiac arrhythmia, pericarditis, pericardial effusion/cardiac tamponade, myocarditis, pulmonary embolism, pleural effusion, pneumothorax, pneumonia PE Risk Stratification: Patient has pleuritic chest pain in the setting of normal vital signs. However, her EKG shows new T wave inversions, and her medical history (HIV and recent COVID-19) increases her risk of venous thromboembolism. Pretest probability is not low enough to apply PERC rule; D-Dimer obtained for further evaluation. D- Dimer results >230; CTA of the chest obtained -- no evidence of PE. On reevaluation, patient remains stable. Continues to complain of chest pain. Given Aspirin. EKG findings as above. Initial and repeat troponin both mildly elevated. HEART score of 4 places patient in the moderate risk category for major adverse cardiac event although clinical presentation would suggest her elevated cardiac enzymes are more likely attributable to a post-infectious inflammatory process. She has no known history of coronary artery disease and denies illicit drug use. Case discussed with hospitalist, who requested ca rdiology consultation prior to admission. Patient will be admitted to the medicine service for further evaluation. Patient expressed understanding and is agreeable to plan of care. 11:00: Paged hospitalist for admission. 11:15: Cardiology consultation requested. 11:25: Case discussed with Dr. Villanueva, cardiology, who recommended obtaining echocardiogram prior to anticoagulation. He has reviewed patient's EKG and compared with prior tracing earlier this year. He agrees to consult on this p atient during admission. Case discussed with Dr. Reed, attending emergency physician, who agrees with diagnostic work-up/plan of care. Critical care attestation.: If time is entered above; I have spent that time in minutes in the direct care of this critically ill patient, excluding procedure time. ED Disposition Is pt being admited?: Yes Does the pt Need Aspirin: Yes Time of Disposition: 11:25 HEART Score - HEART Score History: Moderately suspicious EKG: Non-specific Age: < 45 Risk factors: 1-2 risk factors Troponin: Troponin T 0.043 ng/mL (0.00-0.029) H 03/01/21 10:46 Troponin: 1-3x normal limit HEART Score: 4 - Critical Actions Critical Actions: 4-6 pts:12-16.6% risk of adverse cardiac event. Should be admitted
[2021-03-01 08:45] LABS: Basophils # (Auto) 0.1 K/mm3 (0.0-0.1); Basophils % (Auto) 1.4 % (0.0-1.8); Eosinophils # (Auto) 0.3 K/mm3 (0.0-0.4); Eosinophils % (Auto) 5.2 % (0.0-4.3); Hematocrit 38.2 % (30.3-42.9); Hemoglobin 13.3 gm/dl (10.1-14.3); Lymphocytes # (Auto) 2.4 K/mm3 (1.2-5.4); Lymphocytes % (Auto) 35.7 % (13.4-35.0); Mean Corpuscular HGB Conc 35 % (30-34); Mean Corpuscular Volume 90 fl (79-97); Monocytes # (Auto) 0.5 K/mm3 (0.0-0.8); Monocytes % (Auto) 7.6 % (0.0-7.3); Platelet Count 209 K/mm3 (140-440); Red Blood Count 4.24 M/mm3 (3.65-5.03); Red Cell Distribution Width 13.3 % (13.2-15.2)
[2021-03-01 08:58] LABS: INR 1.05 (0.87-1.13)
[2021-03-01 08:59] LABS: Partial Thromboplastin Time 30.1 Sec. (24.2-36.6)
[2021-03-01 09:15] LABS: Alanine Aminotransferase 15 units/L (7-56); Albumin 4.2 g/dL (3.9-5); BUN/Creatinine Ratio 17; Blood Urea Nitrogen 15 mg/dL (7-17); Hemolysis Index 5
[2021-03-01 09:41] LABS: Chol/HDL Ratio 3.16 %; HDL Cholesterol 48 mg/dL (40-59); LDL Cholesterol,Direct 98 mg/dL (50-130)
--- NOTE | 2021-03-01 10:30 | XRay Report ---
CHEST PA AND LATERAL VIEWS INDICATION: chest pain. COMPARISON: 02/21/2021 FINDINGS: Support devices: None Heart: Normal and unchanged Lungs/Pleura: No acute pulmonary or pleural findings. I see no evidence of right lower lobe pneumonia on today's exam. IMPRESSION: 1. No acute disease. Signer Name: Deejay Read MD Signed: 03/01/2021 10:25 AM Workstation Name: [id number]
--- NOTE | 2021-03-01 10:34 | Cat Scan Report ---
CT angio chest INDICATION: Pleuritic chest pain, Dyspnea; Elevated D-dimer. TECHNIQUE: All CT scans at this location are performed using CT dose reduction for ALARA by means of automated e xposure control. 3 plane MIP and 3-D reconstructions were produced. COMPARISON: None available. FINDINGS: No mediastinal, hilar or axillary adenopathy. No pleural fluid. There is suggestion of minimal, patch y parenchymal disease bilaterally. No evidence of pulmonary embolus. IMPRESSION: 1. Negative for pulmonary embolus. 2. Minimal, patchy parenchymal disease. Although certainly not convincing, very early viral pneumonia cannot be excluded. Signer Name: Deejay Read MD Signed: 03/01/2021 10:30 AM Workstation Name: [id number]
[2021-03-01] MEDS ORDERED: MORPHINE 2 MG/1 ML INJ IV ONE (14:30)
[2021-03-01] MEDS ORDERED: ONDANSETRON 4 MG/2 ML INJ IV ONE (14:30)
--- NOTE | 2021-03-01 14:46 | History and Physical Report ---
History of Present Illness Chief complaint: My chest hurts History of present illness: 30 YO Female with HIV, resolved Coronavirus Infection presents to ED for evaluation. Pt reports" my chest hurts". Patient states that she had experienced chest discomfort over the past 1 day with persistent symptoms over the same timeframe. Patient also acknowledges mild shortness of breath. Patient knowledges worsening chest discomfort with these deep breathing. Patient denies decreased exercise tolerance, diaphoresis, trauma, cough, recent ill contacts. Patient transported to [facility] via private vehicle for further care and evaluation of the aforementioned symptoms. Patient seen and evaluated in the emergency department. All lab and imaging studies reviewed. Patient underwent EKG. EKG reviewed with cardiology team. Patient found to have clinical findings as well as EKG findings consistent with viral pericarditis. Patient placed in observation status and admitted to medical floor. Patient denies fever, chills, chest pain, palpitations, productive cough, skin rash, recent ill contacts, or known recent exposure to COVID-19. No prior admission for review. No medication listed at time of admission for reconciliation. Past History Past Medical History: HIV/AIDS Past Surgical History: cholecystectomy Social history: single. denies: smoking, alcohol abuse, prescription drug abuse Family history: hypertension Medications and Allergies Allergies Allergy/AdvReac Type Severity Reaction Status Date / Time No Known Allergies Allergy Verified 11/10/20 10:41 Home Medications Medication Instructions Recorded Confirmed Last Taken Type Emtricitab/Rilpiviri/Tenof Ala 1 each PO 11/16/20 11/16/20 09:00 History [Odefsey Tablet] Azithromycin [Zithromax Z-JEFFY] 250 mg PO DAILY #6 tab 11/18/20 Unknown Rx Benzonatate [Tessalon Perles] 100 mg PO Q8HR #10 capsule 11/18/20 Unknown Rx Dexamethasone [Decadron] 6 mg PO QDAY #8 tablet 11/18/20 Unknown Rx Albuterol Mdi (or & Nicu Only) 2 puff IH QID PRN #8.5 gram 12/01/20 Unknown Rx [ProAir HFA Inhaler] Docusate Sodium [Colace] 100 mg PO BID PRN #20 capsule 12/01/20 Unknown Rx Doxycycline Hyclate [Doxycycline 100 mg PO Q12HR 7 Days #14 tab 02/21/21 Unknown Rx Hyclate TAB] Hydrocodone/Chlorphen P-Stirex 5 ml PO BID #115 ml 02/21/21 Unknown Rx [Tussionex Pennkinetic Susp] Review of Systems Constitutional: no weight loss, no weight gain, no fever, no chills, no weakness, no malaise Ears, nose, mouth and throat: no ear pain, no ear discharge, no decreased hearing, no nose pain, no nasal congestion, no sinus pressure Cardiovascular: no chest pain, no orthopnea, no dyspnea on exertion, no paroxysmal nocturnal dyspnea Respiratory: pleurisy, no cough, no cough with sputum, no excessive sputum Gastrointestinal: no abdominal pain, no nausea, no vomiting, no diarrhea Genitourinary Female: no pelvic pain, no flank pain, no dysuria, no urinary frequency, no urgency Rectal: no pain, no incontinence, no bleeding Musculoskeletal: no neck stiffness, no neck pain, no shooting arm pain, no arm numbness/tingling Integumentary: no rash, no pruritis, no redness, no sores, no jaundice Neurological: no transient paralysis, no paralysis, no parathesias, no tingling, no seizures Psychiatric: no anxiety, no change in sleep habits, no insomnia, no change in appetite, no change in libido Endocrine: no cold intolerance, no heat intolerance, no nocturia, no excessive sweating Hematologic/Lymphatic: no easy bruising, no easy bleeding Allergic/Immunologic: no allergic rhinitis, no wheezing Exam - Constitutional Vitals: Temp Pulse Resp BP Pulse Ox 98.5 F 68 18 117/70 100 03/01/21 07:30 03/01/21 07:30 03/01/21 07:30 03/01/21 07:30 03/01/21 07:30 General appearance: Present: mild distress - EENT Eyes: Present: PERRL ENT: hearing intact, clear oral mucosa - Neck Neck: Present: supple, normal ROM - Respiratory Respiratory effort: normal Respiratory: bilateral: CTA - Cardiovascular Heart Sounds: Present: S1 & S2. Absent: rub, click - Extremities Extremities: pulses symmetrical, No edema Peripheral Pulses: within normal limits - Abdominal General gastrointestinal: Present: soft, non-tender, non-distended, normal bowel sounds Female genitourinary: Present: normal - Integumentary Integumentary: Present: clear, warm, dry - Musculoskeletal Musculoskeletal: gait normal, strength equal bilaterally - Psychiatric Psychiatric: appropriate mood/affect, intact judgment & insight - Neurologic Neurologic: CNII-XII intact, moves all extremities HEART Score - HEART Score EKG: Non-specific Age: < 45 Risk factors: 1-2 risk factors Troponin: Troponin T 0.043 ng/mL (0.00-0.029) H 03/01/21 10:46 Troponin: 1-3x normal limit - Critical Actions Critical Actions: 4-6 pts:12-16.6% risk of adverse cardiac event. Should be admitted Results - Labs CBC & Chem 7: 03/01/21 08:13 03/01/21 08:13 Labs: Abnormal lab results 03/01/21 03/01/21 03/01/21 Range/Units 08:13 08:13 08:13 MCHC 35 H (30-34) % Lymph % (Auto) 35.7 H (13.4-35.0) % [place] % (Auto) 7.6 H (0.0-7.3) % Eos % (Auto) 5.2 H (0.0-4.3) % D-Dimer 245.02 H (0-234) ng/mlDDU Sodium 135 L (137-145) mmol/L Troponin T 0.046 H (0.00-0.029) ng/mL 03/01/21 Range/Units 10:46 MCHC (30-34) % Lymph % (Auto) (13.4-35.0) % [place] % (Auto) (0.0-7.3) % Eos % (Auto) (0.0-4.3) % D-Dimer (0-234) ng/mlDDU Sodium (137-145) mmol/L Troponin T 0.043 H (0.00-0.029) ng/mL Assessment and Plan - Patient Problems (1) Viral pericarditis Current Visit: Yes Status: Acute Qualifiers: Chronicity: acute Qualified Code(s): I30.1 - Infective pericarditis Plan to address problem: Cardiology team consulted, continue current therapy as per cardiology team recommendations, supportive care. Pain control. (2) HIV (human immunodeficiency virus infection) Current Visit: Yes Status: Acute Qualifiers: HIV symptom status: unspecified Qualified Code(s): B20 - Human immunodeficiency virus [HIV] disease Plan to address problem: Outpatient infectious disease follow-up, continue supportive care. (3) DVT prophylaxis Current Visit: Yes Status: Acute Plan to address problem: SCD to bilateral lower extremities while in bed, patient is ambulatory.
[2021-03-01] MEDS ORDERED: ONDANSETRON 4 MG/2 ML INJ IV PRN (15:40)
[2021-03-01] MEDS ORDERED: ACETAMINOPHEN 325 MG TAB PO PRN (15:40)
[2021-03-01] MEDS ORDERED: ALBUTEROL 2.5 MG/3 ML NEBU IH PRN (15:40)
[2021-03-01] MEDS: ASPIRIN 81 MG TAB CHEW PO ONE ×2 (22:11→22:13)
--- NOTE | 2021-03-02 08:42 | Progress Note ---
Assessment and Plan - Patient Problems (1) Viral pericarditis Current Visit: Yes Status: Acute Qualifiers: Chronicity: acute Qualified Code(s): I30.1 - Infective pericarditis Plan to address problem: Cardiology team consulted, continue current therapy as per cardiology team recommendations, supportive care. Pain control. (2) HIV (human immunodeficiency virus infection) Current Visit: Yes Status: Acute Qualifiers: HIV symptom status: unspecified Qualified Code(s): B20 - Human immunodeficiency virus [HIV] disease Plan to address problem: Outpatient infectious disease follow-up, continue supportive care. (3) DVT prophylaxis Current Visit: Yes Status: Acute Plan to address problem: SCD to bilateral lower extremities while in bed, patient is ambulatory. Subjective Date of service: 03/02/21 Principal diagnosis: Viral pericarditis Interval history: 30 YO Female with HIV, resolved Coronavirus Infection presents to ED for evaluation. Pt reports" my chest hurts". Patient states that she had experienced chest discomfort over the past 1 day with persistent symptoms over the same timeframe. Patient also acknowledges mild shortness of breath. Patient knowledges worsening chest discomfort with these deep breathing. Patient denies decreased exercise tolerance, diaphoresis, trauma, cough, recent ill contacts. Patient transported to [facility] via private vehicle for further care and evaluation of the aforementioned symptoms. Patient seen and evaluated in the emergency department. All lab and imaging studies reviewed. Patient underwent EKG. EKG reviewed with cardiology team. Patient found to have clinical findings as well as EKG findings consistent with viral pericarditis. Patient placed in observation status and admitted to medical floor. Patient denies fever, chills, chest pain, palpitations, productive cough, skin rash, recent ill contacts, or known recent exposure to COVID-19. No prior admission for review. No medication listed at time of admission for reconciliation. Objective - Constitutional Vitals: Vital Signs - 12hr 03/01/21 03/02/21 23:40 05:44 Temperature 98.6 F 98.9 F Pulse Rate 81 67 Respiratory 16 15 Rate Blood Pressure 111/72 101/57 O2 Sat by Pulse 100 100 Oximetry General appearance: Present: no acute distress, well-nourished - EENT Eyes: PERRL, EOM intact ENT: hearing intact, clear oral mucosa Ears: bilateral: normal - Neck Neck: supple, normal ROM - Respiratory Respiratory effort: normal Respiratory: bilateral: CTA - Breasts Breasts: normal - Cardiovascular Heart rate: 78 Rhythm: regular Heart Sounds: Present: S1 & S2. Absent: gallop, rub Extremities: pulses intact, No edema, normal color, Full ROM - Gastrointestinal General gastrointestinal: Present: soft, non-tender, non-distended, normal bowel sounds - Genitourinary Female genitourinary: normal - Integumentary Integumentary: clear, warm, dry - Musculoskeletal Musculoskeletal: 1, strength equal bilaterally - Neurologic Neurologic: moves all extremities - Psychiatric Psychiatric: memory intact, appropriate mood/affect, intact judgment & insight - Labs CBC & Chem 7: 03/01/21 08:13 03/02/21 08:56 Labs: Abnormal lab results 03/01/21 03/01/21 03/01/21 Range/Units 08:13 08:13 08:13 MCHC 35 H (30-34) % Lymph % (Auto) 35.7 H (13.4-35.0) % [place] % (Auto) 7.6 H (0.0-7.3) % Eos % (Auto) 5.2 H (0.0-4.3) % D-Dimer 245.02 H (0-234) ng/mlDDU Sodium 135 L (137-145) mmol/L Troponin T 0.046 H (0.00-0.029) ng/mL 03/01/21 Range/Units 10:46 MCHC (30-34) % Lymph % (Auto) (13.4-35.0) % [place] % (Auto) (0.0-7.3) % Eos % (Auto) (0.0-4.3) % D-Dimer (0-234) ng/mlDDU Sodium (137-145) mmol/L Troponin T 0.043 H (0.00-0.029) ng/mL HEART Score - HEART Score EKG: Non-specific Age: < 45 Risk factors: 1-2 risk factors Troponin: Troponin T 0.043 ng/mL (0.00-0.029) H 03/01/21 10:46 Troponin: 1-3x normal limit - Critical Actions Critical Actions: 4-6 pts:12-16.6% risk of adverse cardiac event. Should be admitted
[2021-03-02 09:38] LABS: Amphetamine Screen,Urine Negative; Benzodiazepines Screen,Urine Negative; Cannabinoid Screen,Urine Negative; Cocaine Screen,Urine Negative; Methadone Screen,Urine Negative; Opiate Screen,Urine Negative
[2021-03-02 09:52] LABS: BUN/Creatinine Ratio 10; Blood Urea Nitrogen 8 mg/dL (7-17); Calcium 8.8 mg/dL (8.4-10.2); Hemolysis Index 13
--- NOTE | 2021-03-02 10:35 | Consultation ---
History of Present Illness Consult date: 03/02/21 Requesting physician: MALICK MANNING Consult reason: chest pain History of present illness: 30-year-old patient who had Covid in November recovered well last week had shortness of breath and cough with blood was treated in the ER with antibiotics that is resolved but patient developed chest pain across. Reproducible with deep breathing patient received antiinflammatory medications feeling better. But patient had abnormal troponin with a negative CT of the chest. For pulmonary embolism. No nausea no vomiting no lightheadedness. But shortness of breath is present Past History Past Medical History: HIV/AIDS Past Surgical History: cholecystectomy Social history: single. denies: smoking, alcohol abuse, prescription drug abuse Family history: hypertension Medications and Allergies Allergies Allergy/AdvReac Type Severity Reaction Status Date / Time No Known Allergies Allergy Verified 11/10/20 10:41 Home Medications Medication Instructions Recorded Confirmed Last Taken Type Emtricitab/Rilpiviri/Tenof Ala 1 each PO DAILY 11/16/20 03/01/21 11/16/20 09:00 History [Odefsey Tablet] Azithromycin [Zithromax Z-JEFFY] 250 mg PO DAILY #6 tab 11/18/20 03/01/21 Unknown Rx Benzonatate [Tessalon Perles] 100 mg PO Q8HR #10 capsule 11/18/20 03/01/21 Unknown Rx Dexamethasone [Decadron] 6 mg PO QDAY #8 tablet 11/18/20 03/01/21 Unknown Rx Albuterol Mdi (or & Nicu Only) 2 puff IH QID PRN #8.5 gram 12/01/20 03/01/21 Unknown Rx [ProAir HFA Inhaler] Docusate Sodium [Colace] 100 mg PO BID PRN #20 capsule 12/01/20 03/01/21 Unknown Rx Doxycycline Hyclate [Doxycycline 100 mg PO Q12HR 7 Days #14 tab 02/21/21 03/01/21 Unknown Rx Hyclate TAB] Hydrocodone/Chlorphen P-Stirex 5 ml PO BID #115 ml 02/21/21 03/01/21 Unknown Rx [Tussionex Pennkinetic Susp] Active Meds: Active Medications Acetaminophen (Acetaminophen 325 Mg Tab) 650 mg PO Q4H PRN PRN Reason: Pain MILD(1-3)/Fever >100.5/ARREGUIN Albuterol (Albuterol 2.5 Mg/3 Ml Nebu) 2.5 mg IH Q4HRT PRN PRN Reason: Shortness Of Breath Ondansetron HCl (Ondansetron 4 Mg/2 Ml Inj) 4 mg IV Q8H PRN PRN Reason: Nausea And Vomiting Sodium Chloride (Sodium Chloride 0.9% 10 Ml Flush Syringe) 10 ml IV BID ALOK Last Admin: 03/02/21 09:37 Dose: 10 ml Documented by: Sodium Chloride (Sodium Chloride 0.9% 10 Ml Flush Syringe) 10 ml IV PRN PRN PRN Reason: LINE FLUSH Review of Systems All systems: negative (as per, hpi) Physical Examination Vital Signs Temp Pulse Resp BP Pulse Ox 98.5 F 68 18 117/70 100 03/01/21 07:30 03/01/21 07:30 03/01/21 07:30 03/01/21 07:30 03/01/21 07:30 General appearance: no acute distress, well-nourished HEENT: Positive: PERRL, Mucus Membranes Moist Neck: Positive: neck supple, trachea midline Cardiac: Positive: Reg Rate and Rhythm, S1/S2. Negative: Audible Murmur Lungs: Positive: clear to auscultation, Normal Breath Sounds Neuro: Positive: Grossly Intact Abdomen: Positive: Soft, Active Bowel Sounds. Negative: Tender, Distended Female genitourinary: deferred Skin: Positive: Clear Incision: Cardiac Cath Site Musculoskeletal: No Pain, Normal Range of Motion Extremities: Present: normal. Absent: edema Results 03/01/21 08:13 03/02/21 08:56 Comprehensive Metabolic Panel 03/02/21 Range/Units 08:56 Sodium 134 L (137-145) mmol/L Potassium 4.1 (3.6-5.0) mmol/L Chloride 103.6 (98-107) mmol/L Carbon Dioxide 22 (22-30) mmol/L BUN 8 (7-17) mg/dL Creatinine 0.8 (0.6-1.2) mg/dL Glucose 88 (65-100) mg/dL Calcium 8.8 (8.4-10.2) mg/dL - Imaging and Cardiology Echo: pending EKG interpretations - Telemetry EKG Rhythm: Sinus Rhythm (Sinus rhythm nonspecific ST-T's inferior leads no change) Assessment and Plan 30-year-old female history of Covid recovered HIV 1 week of reproducible chest pain with inspiration. Abnormal troponin probably lab error will repeat. Get an echocardiogram for LV function anti-inflammatories with colchicine and ibuprofen. Probable discharge after echocardiogram - Patient Problems (1) Chest pain Current Visit: Yes Status: Acute Qualifiers: Chest pain type: chest pain on breathing Qualified Code(s): R07.1 - Chest pain on breathing; R07.81 - Pleurodynia (2) Elevated troponin Current Visit: Yes Status: Acute (3) HIV (human immunodeficiency virus infection) Current Visit: Yes Status: Acute Qualifiers: HIV symptom status: unspecified Qualified Code(s): B20 - Human immunodeficiency virus [HIV] disease (4) History of COVID-19 Current Visit: Yes Status: Acute (5) History of HIV infection Current Visit: Yes Status: Acute (6) Viral pericarditis Current Visit: Yes Status: Acute Qualifiers: Chronicity: acute Qualified Code(s): I30.1 - Infective pericarditis
[2021-03-02] MEDS: IBUPROFEN 800 MG TAB PO SCH ×2 (12:20→22:15)
[2021-03-02] MEDS: COLCHICINE 0.6 MG TAB PO SCH (12:20)
[2021-03-03 07:02] VITALS: BP 104/61
[2021-03-03] MEDS: COLCHICINE 0.6 MG TAB PO SCH (09:17)
[2021-03-03] MEDS: IBUPROFEN 800 MG TAB PO SCH (10:19)
--- NOTE | 2021-03-03 11:20 | Progress Note ---
Assessment and Plan Assessment and Plan 30-year-old female history of Covid recovered HIV 1 week of reproducible chest pain with inspiration. Abnormal troponin probably lab error will repeat. Get an echocardiogram for LV function anti-inflammatories with colchicine and ibuprofen. Probable discharge after echocardiogram Chest pain Chest pain is currently resolved. No episodes of chest pain or shortness of breath overnight. Echo cardiogram is pending: Preliminary echo appears normal LVEF: 50-55%. No pericardial effusion noted Elevated troponin Troponins were minimally elevated over the weekend, nonspecific and subacute. Suspect lab error. Repeat troponin is normal. Viral pericarditis Patient is recently status post Covid infection. Chest pain is reproducible with deep inspiration. Will initiate anti-inflammatories: Ibuprofen 800 mg p.o. every 12 hours DVT prophylaxis Patient is in stable cardiac status. Recommend continue current anti- inflammatory regimen for her suspected viral pericarditis. Nothing further to add. Patient may discharge from cardiology standpoint. This patient was seen in conjunction with Dr Moreno who agrees with this assessment and plan of care - Patient Problems (1) Chest pain Current Visit: Yes Status: Acute Qualifiers: Chest pain type: chest pain on breathing Qualified Code(s): R07.1 - Chest pain on breathing; R07.81 - Pleurodynia (2) Elevated troponin Current Visit: Yes Status: Acute (3) HIV (human immunodeficiency virus infection) Current Visit: Yes Status: Acute Qualifiers: HIV symptom status: unspecified Qualified Code(s): B20 - Human immunodeficiency virus [HIV] disease (4) History of COVID-19 Current Visit: Yes Status: Acute (5) History of HIV infection Current Visit: Yes Status: Acute (6) Viral pericarditis Current Visit: Yes Status: Acute Qualifiers: Chronicity: acute Qualified Code(s): I30.1 - Infective pericarditis Subjective Date of service: 03/03/21 Principal diagnosis: Chest Pain Interval history: Patient resting comfortably in bed. No shortness of breath or chest pain overnight. Telemetry reviewed: Sinus rhythm 73. No events Objective Last Vital Signs Temp 98.6 F 03/03/21 05:59 Pulse 69 03/03/21 05:59 Resp 18 03/03/21 05:59 BP 104/61 03/03/21 05:59 Pulse Ox 100 03/03/21 05:59 - Physical Examination General: No Apparent Distress HEENT: Positive: PERRL, Mucus Membranes Moist Neck: Positive: neck supple, trachea midline Cardiac: Positive: Reg Rate and Rhythm, S1/S2 Lungs: Positive: clear to auscultation, Normal Breath Sounds Neuro: Positive: Grossly Intact Abdomen: Positive: Soft, Active Bowel Sounds. Negative: Tender, Distended Skin: Positive: Clear Incision: Cardiac Cath Site Musculoskeletal: No Pain, Normal Range of Motion Extremities: Present: normal. Absent: edema - Imaging and Cardiology Echo: pending
--- NOTE | 2021-03-04 12:45 | Electrocardiograph Report ---
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
--- NOTE | 2021-04-28 03:11 | Discharge Summary ---
Providers - Providers Date of Admission: 03/01/21 16:22 Date of discharge: 03/03/21 Attending physician: MALICK MANNING 03/01/21 15:42 Consult to Physician [CONS] Routine Comment: Consulting Provider: KAREN STOCK Physician Instructions: Reason For Exam: pericarditis Primary care physician: [employer] [facility] Hospitalization Condition: Stable Hospital course: Assessment and Plan 30-year-old female history of Covid recovered HIV 1 week of reproducible chest pain with inspiration. Abnormal troponin probably lab error will repeat. Get an echocardiogram for LV function anti-inflammatories with colchicine and ibuprofen. Probable discharge after echocardiogram Chest pain Chest pain is currently resolved. No episodes of chest pain or shortness of breath overnight. Echo cardiogram is pending: Preliminary echo appears normal LVEF: 50-55%. No pericardial effusion noted Elevated troponin Troponins were minimally elevated over the weekend, nonspecific and subacute. Suspect lab error. Repeat troponin is normal. Viral pericarditis Patient is recently status post Covid infection. Chest pain is reproducible with deep inspiration. Will initiate anti-inflammatories: Ibuprofen 800 mg p.o. every 12 hours DVT prophylaxis Patient is in stable cardiac status. Recommend continue current anti-inflamm atory regimen for her suspected viral pericarditis. - Patient Problems (1) Chest pain Current Visit: Yes Status: Acute Qualifiers: Chest pain type: chest pain on breathing Qualified Code(s): R07.1 - Chest pain on breathing; R07.81 - Pleurodynia (2) Elevated troponin Current Visit: Yes Status: Acute (3) HIV (human immunodeficiency virus infection) Current Visit: Yes Status: Acute Qualifiers: HIV symptom status: unspecified Qualified Code(s): B20 - Human immuno deficiency virus [HIV] disease (4) History of COVID-19 Current Visit: Yes Status: Acute (5) History of HIV infection Current Visit: Yes Status: Acute (6) Viral pericarditis Current Visit: Yes Status: Acute Qualifiers: Chronicity: acute Qualified Code(s): I30.1 - Infective pericarditis Subjective Date of service: 03/03/21 Principal diagnosis: Chest Pain Interval history: Patient resting comfortably in bed. No shortness of breath or chest pain overnight. Telemetry reviewed: Sinus rhythm 73. No events Disposition: TO HOME OR SELFCARE Final Discharge Diagnosis (Prints w/discharge instructions): Viral Pericarditis. Chest pain - Discharge Diagnoses (1) Viral pericarditis Status: Acute Qualifiers: Chronicity: acute Qualified Code(s): I30.1 - Infective pericarditis (2) Elevated troponin Status: Acute (3) HIV (human immunodeficiency virus infection) Status: Acute Qualifiers: (4) DVT prophylaxis Status: Acute Core Measure Documentation - Palliative Care Palliative Care/ Comfort Measures: Not Applicable - Core Measures Any of the following diagnoses?: none Exam - Constitutional Vitals: Temp Pulse Resp BP Pulse Ox 97.6 F 72 20 104/61 99 03/03/21 17:42 03/03/21 17:42 03/03/21 17:42 03/03/21 05:59 03/03/21 11:00 General appearance: Present: no acute distress, well-nourished - EENT Eyes: Present: PERRL ENT: hearing intact, clear oral mucosa - Neck Neck: Present: supple, normal ROM - Respiratory Respiratory effort: normal Respiratory: bilateral: CTA - Cardiovascular Heart rate: 78 Rhythm: regular Heart Sounds: Present: S1 & S2. Absent: rub, click - Extremities Extremities: pulses symmetrical, No edema Peripheral Pulses: within normal limits - Abdominal General gastrointestinal: Present: soft, non-tender, non-distended, normal bowel sounds Female genitourinary: Present: normal - Integumentary Integumentary: Present: clear, warm, dry - Musculoskeletal Musculoskeletal: gait normal, strength equal bilaterally - Psychiatric Psychiatric: appropriate mood/affect, intact judgment & insight - Neurologic Neurologic: CNII-XII intact, moves all extremities Plan Activity: no restrictions Diet: regular
== END 2021-03-03 19:30 | disposition home or self-care (01) ==
LOC: ED 06:41 → 3A 16:22
PROVIDERS: ADMIT Internal Medicine; ATTEND Internal Medicine
DX: I30.1 Infective pericarditis (principal); R07.89 Other chest pain; B20 Human immunodeficiency virus [HIV] disease; R77.8 Other specified abnormalities of plasma proteins; Z90.49 Acquired absence of other specified parts of digestive tract; Z86.16 Personal history of COVID-19; Z79.899 Other long term (current) drug therapy
CPT/HCPCS: 36415; 71046; 71275; 80048; 80053; 80061; 80307; 83735; 84484; 84703; 85025; 85379; 85610; 85730; 93005; 93306; 96374; 96375; 99285; G0378; J2270; J2405; Q9967

== ENCOUNTER 2021-07-29 08:37 | Emergency (ER) | payer OTHER ==
[2021-07-29 08:41] VITALS: BP 115/72
[2021-07-29] MEDS ORDERED: ASPIRIN 325 MG TAB PO ONE (08:43)
--- NOTE | 2021-07-29 08:45 | Event Note ---
ED Screening Note ED Screening Note: sharp mid sternal cp here in March admitted with inc trop same pain as the last time echo was normal no cath noted in EMR hx hiv This initial assessment/diagnostic orders/clinical plan/treatment(s) is/are subject to change based on patients health status, clinical progression and re- assessment by fellow clinical providers in the ED. Further treatment and workup at subsequent clinical providers discretion. Patient/guardian urged not to elope from the ED as their condition may be serious if not clinically assessed and managed. Initial orders include: ro ACS
--- NOTE | 2021-07-29 09:02 | Emergency Department Report ---
ED Chest Pain HPI - General Chief Complaint: Chest Pain Stated Complaint: CP Time Seen by Provider: 07/29/21 08:42 Source: patient Mode of arrival: Ambulatory Limitations: No Limitations - History of Present Illness Initial Comments: This is a 31-year-old -Prydeinig female who presents to the emergency department with complaint of midsternal sharp chest pains that occurs mostly with respirations. The patient also says that she sometimes feels it in the middle of her back. Sometimes the patient will feel the chest pain when she leans forward or moves her torso around. It is associated with some mild shortness of breath. She denies any cough, fever, lower extremity swelling, nausea, vomiting or diaphoresis. Patient has a history of HIV for which she is compliant with antiretroviral medication. She says that her viral load is undetectable and CD4 count is 847. The patient also got the meningitis shot yesterday and wonders if this could be a reaction to that vaccination. The patient was seen here in March of this year for similar symptoms. At that time she had to slightly elevated troponins. She was admitted and had a normal ec hocardiogram. No recent travel or sick contacts at home. She has not taken anything for symptoms prior to presentation. She denies any tobacco or illicit drug use. Currently the pain is 8 out of 10 in intensity. - Related Data Home Medications Medication Instructions Recorded Confirmed Last Taken Emtricitab/Rilpiviri/Tenof Ala 1 each PO DAILY 11/16/20 03/01/21 11/16/20 09:00 [Odefsey Tablet] Darunavir/Cobicistat (Nf) 1 each PO DAILY 03/02/21 03/02/21 03/01/21 [Prezcobix 800 mg-150 mg (Nf)] Previous Rx's Medication Instructions Recorded Last Taken Type Azithromycin [Zithromax Z-JEFFY] 250 mg PO DAILY #6 tab 11/18/20 Unknown Rx Benzonatate [Tessalon Perles] 100 mg PO Q8HR #10 capsule 11/18/20 Unknown Rx Albuterol Mdi (or & Nicu Only) 2 puff IH QID PRN #8.5 gram 12/01/20 Unknown Rx [ProAir HFA Inhaler] Docusate Sodium [Colace CAP] 100 mg PO BID PRN #20 capsule 12/01/20 Unknown Rx Doxycycline Hyclate [Doxycycline 100 mg PO Q12HR 7 Days #14 tab 02/21/21 Unknown Rx Hyclate TAB] Hydrocodone/Chlorphen P-Stirex 5 ml PO BID #115 ml 02/21/21 Unknown Rx [Tussionex Pennkinetic Susp] Allergies Allergy/AdvReac Type Severity Reaction Status Date / Time No Known Allergies Allergy Verified 11/10/20 10:41 Heart Score - HEART Score History: Slightly suspicious EKG: Normal Age: < 45 Risk factors: No known risk factors Troponin: < normal limit HEART Score: 0 - EKG Read Time Time EKG Completed: 08:50 EKG Read Time: 08:52 - Critical Actions Critical Actions: 0-3 pts:0.9-1.7%risk of adverse cardiac event.Candidate for discharge ED Review of Systems ROS: Stated complaint: CP Other details as noted in HPI Comment: All other systems reviewed and negative Constitutional: denies: chills, fever Eyes: denies: eye pain, vision change ENT: denies: ear pain, throat pain Respiratory: shortness of breath. denies: cough Cardiovascular: chest pain. denies: edema Gastrointestinal: denies: abdominal pain, vomiting Genitourinary: denies: dysuria, discharge Musculoskeletal: denies: back pain, arthralgia Skin: denies: rash, lesions Neurological: denies: headache, weakness ED Past Medical Hx - Past Medical History Previous Medical History?: Yes Hx HIV: Yes Additional medical history: HIV - Surgical History Past Surgical History?: Yes Hx Cholecystectomy: Yes - Social History Smoking Status: Never Smoker - Medications Home Medications: Home Medications Medication Instructions Recorded Confirmed Last Taken Type Emtricitab/Rilpiviri/Tenof Ala 1 each PO DAILY 11/16/20 03/01/21 11/16/20 09:00 History [Odefsey Tablet] Azithromycin [Zithromax Z-JEFFY] 250 mg PO DAILY #6 tab 11/18/20 03/01/21 Unknown Rx Benzonatate [Tessalon Perles] 100 mg PO Q8HR #10 capsule 11/18/20 03/01/21 Unknown Rx Albuterol Mdi (or & Nicu Only) 2 puff IH QID PRN #8.5 gram 12/01/20 03/01/21 Unknown Rx [ProAir HFA Inhaler] Docusate Sodium [Colace CAP] 100 mg PO BID PRN #20 capsule 12/01/20 03/01/21 Unknown Rx Doxycycline Hyclate [Doxycycline 100 mg PO Q12HR 7 Days #14 tab 02/21/21 03/01/21 Unknown Rx Hyclate TAB] Hydrocodone/Chlorphen P-Stirex 5 ml PO BID #115 ml 02/21/21 03/01/21 Unknown Rx [Tussionex Pennkinetic Susp] Darunavir/Cobicistat (Nf) 1 each PO DAILY 03/02/21 03/02/21 03/01/21 History [Prezcobix 800 mg-150 mg (Nf)] ED Physical Exam - General Limitations: No Limitations - Other Other exam information: GENERAL: The patient is well-developed well-nourished. HENT: Normocephalic. Atraumatic. Patient has moist mucous membranes. EYES: Extraocular motions are intact. NECK: Supple. Trachea is midline. CHEST/LUNGS: Clear to auscultation. There is no respiratory distress noted. HEART/CARDIOVASCULAR: Regular. There is no tachycardia. There is no murmur. ABDOMEN: Abdomen is soft, nontender. Patient has normal bowel sounds. SKIN: Skin is warm and dry. NEURO: The patient is awake, alert, and oriented. The patient is cooperative. Normal speech. MUSCULOSKELETAL: There is no tenderness or deformity. There is no limitation range of motion. ED Course Vital Signs 07/29/21 08:40 Temperature 98 F Pulse Rate 77 Respiratory 16 Rate Blood Pressure 115/72 [Right] O2 Sat by Pulse 98 Oximetry FUNMILAYO score - Funmilayo Score Age > 65: (0) No Aspirin use within the Past 7 Days: (0) No 3 or more CAD Risk Factors: (0) No 2 or more Angina events in past 24 hrs: (1) Yes Known CAD with more than 50% Stenosis: (0) No Elevated Cardiac Markers: (0) No ST Deviation Greater than 0.5mm: (0) No FUNMILAYO Score: 1 ED Medical Decision Making - Lab Data Result diagrams: 07/29/21 09:15 07/29/21 09:15 Lab Results 07/29/21 07/29/21 07/29/21 Range/Units 09:15 09:15 09:15 WBC 4.4 L (4.5-11.0) K/mm3 RBC 4.38 (3.65-5.03) M/mm3 Hgb 13.7 (10.1-14.3) gm/dl Hct 39.9 (30.3-42.9) % MCV 91 (79-97) fl MCH 31 (28-32) pg MCHC 34 (30-34) % RDW 13.2 (13.2-15.2) % Plt Count 236 (140-440) K/mm3 Lymph % (Auto) 39.2 H (13.4-35.0) % [place] % (Auto) 3.7 (0.0-7.3) % Eos % (Auto) 0.9 (0.0-4.3) % Baso % (Auto) 3.0 H (0.0-1.8) % Lymph # (Auto) 1.7 (1.2-5.4) K/mm3 [place] # (Auto) 0.2 (0.0-0.8) K/mm3 Eos # (Auto) 0.0 (0.0-0.4) K/mm3 Baso # (Auto) 0.1 (0.0-0.1) K/mm3 Seg Neutrophils % 53.2 (40.0-70.0) % Seg Neutrophils # 2.3 (1.8-7.7) K/mm3 PT 14.0 (12.2-14.9) Sec. INR 1.02 (0.87-1.13) D-Dimer (0-234) ng/mlDDU Sodium 137 (137-145) mmol/L Potassium 4.1 (3.6-5.0) mmol/L Chloride 104.8 (98-107) mmol/L Carbon Dioxide 25 (22-30) mmol/L Anion Gap 11 mmol/L BUN 11 (7-17) mg/dL Creatinine 0.8 (0.6-1.2) mg/dL Estimated GFR > 60 ml/min BUN/Creatinine Ratio 14 % Glucose 118 H (65-100) mg/dL Calcium 9.0 (8.4-10.2) mg/dL Total Bilirubin 0.40 (0.1-1.2) mg/dL AST 15 (5-40) units/L ALT 14 (7-56) units/L Alkaline Phosphatase 85 (35-129) units/L Troponin T < 0.010 (0.00-0.029) ng/mL Total Protein 7.3 (6.3-8.2) g/dL Albumin 4.3 (3.9-5) g/dL Albumin/Globulin Ratio 1.4 % HCG, Qual (Negative) 07/29/21 07/29/21 07/29/21 Range/Units 09:15 09:45 11:35 WBC (4.5-11.0) K/mm3 RBC (3.65-5.03) M/mm3 Hgb (10.1-14.3) gm/dl Hct (30.3-42.9) % MCV (79-97) fl MCH (28-32) pg MCHC (30-34) % RDW (13.2-15.2) % Plt Count (140-440) K/mm3 Lymph % (Auto) (13.4-35.0) % [place] % (Auto) (0.0-7.3) % Eos % (Auto) (0.0-4.3) % Baso % (Auto) (0.0-1.8) % Lymph # (Auto) (1.2-5.4) K/mm3 [place] # (Auto) (0.0-0.8) K/mm3 Eos # (Auto) (0.0-0.4) K/mm3 Baso # (Auto) (0.0-0.1) K/mm3 Seg Neutrophils % (40.0-70.0) % Seg Neutrophils # (1.8-7.7) K/mm3 PT (12.2-14.9) Sec. INR (0.87-1.13) D-Dimer < 135.00 (0-234) ng/mlDDU Sodium (137-145) mmol/L Potassium (3.6-5.0) mmol/L Chloride (98-107) mmol/L Carbon Dioxide (22-30) mmol/L Anion Gap mmol/L BUN (7-17) mg/dL Creatinine (0.6-1.2) mg/dL Estimated GFR ml/min BUN/Creatinine Ratio % Glucose (65-100) mg/dL Calcium (8.4-10.2) mg/dL Total Bilirubin (0.1-1.2) mg/dL AST (5-40) units/L ALT (7-56) units/L Alkaline Phosphatase (35-129) units/L Troponin T < 0.010 (0.00-0.029) ng/mL Total Protein (6.3-8.2) g/dL Albumin (3.9-5) g/dL Albumin/Globulin Ratio % HCG, Qual Negative (Negative) - EKG Data -: EKG Interpreted by Me EKG shows normal: sinus rhythm, axis, intervals, QRS complexes, ST-T waves Rate: normal - EKG Data When compared to previous EKG there are: no significant change Interpretation: normal EKG, unchanged when compared t (03/01/21) - Radiology Data Radiology results: image reviewed interpreted by me: Chest x-ray does not show any acute process. There are no pleural effusions, obvious pneumonia and there is no pneumothorax. - Medical Decision Making This patient presents to the emergency department with complaint of some midsternal chest pain, mostly with respiration, that has been going on since just prior to arrival. The patient recently got a meningitis vaccination and wonders if this could be related. Heart and lung sounds are normal to auscultation. The patient does not appear in any respiratory or acute distress. EKG is normal without ST elevation myocardial infarction or any arrhythmia. Chest x-ray does not show any pneumonia, pleural effusions, pneumothorax, focal consolidation, or any other acute process. Labs have been unremarkable including CBC, metabolic panel, negative troponins x2, negative D-dimer. Vital signs reassuring throughout her ED course including being afebrile. The patient was given a shot of Toradol and a DuoNeb breathing treatment. Upon reevaluation she says she is feeling improved. This all appears low suspicion for ACS and she appears safe for discharge home at this time. Given her history of HIV and previously elevated troponin level, the patient will be seen outpatient by cardiology. Her contact information has been sent over to the [facility], and someone from their office should be contacting her shortly for close outpatient follow-up as part of our hospitals low risk chest pain protocol. She will return to the emergency department with any worsening of her symptoms or with any acute distress. Critical Care Time: No Critical care attestation.: If time is entered above; I have spent that time in minutes in the direct care of this critically ill patient, excluding procedure time. ED Disposition Clinical Impression: History of HIV infection Chest pain Qualifiers: Chest pain type: unspecified Qualified Code(s): R07.9 - Chest pain, unspecified Disposition: 01 HOME / SELF CARE / HOMELESS Is pt being admited?: No Condition: Stable Instructions: Nonspecific Chest Pain, Adult Additional Instructions: Please follow-up with a primary care physician in the next few days. I have sent your contact information over to the [facility], and someone from their office should be contacting you shortly for close outpatient follow-up. Just in case, I am giving you a referral for one of their automotive glass technician, Dr. Ponce. Return to the emergency department with any worsening of your symptoms, new or concerning symptoms not addressed during this current emergency department visit , or with any acute distress. Referrals: PRIMARY CAREMD [Primary Care Provider] - 2-3 Days LAUREN PONCE MD [Staff Physician] - 2-3 Days Forms: Work/School Release Form(ED) Time of Disposition: 12:25
--- NOTE | 2021-07-29 09:20 | XRay Report ---
CHEST 2 VIEWS, 07/29/2021 INDICATION: Shortness of breath COMPARISON: Chest radiograph, 03/01/2020 FINDINGS: Support devices: None. Heart: The cardiac silhouette is normal in size. Lungs/pleura: The lungs appear clear of focal airspace disease or significant pleural effusion. Additional findings: No significant acute abnormality. IMPRESSION: 1. No evidence of acute cardiopulmonary process. Signer Name: Kerline Juan MD Signed: 07/29/2021 9:16 AM Workstation Name: [id number]
[2021-07-29 09:57] LABS: Basophils # (Auto) 0.1 K/mm3 (0.0-0.1); Eosinophils % (Auto) 0.9 % (0.0-4.3); Hematocrit 39.9 % (30.3-42.9); Hemoglobin 13.7 gm/dl (10.1-14.3); Lymphocytes # (Auto) 1.7 K/mm3 (1.2-5.4); Lymphocytes % (Auto) 39.2 % (13.4-35.0); Mean Corpuscular HGB Conc 34 % (30-34); Mean Corpuscular Volume 91 fl (79-97); Monocytes # (Auto) 0.2 K/mm3 (0.0-0.8); Monocytes % (Auto) 3.7 % (0.0-7.3); Platelet Count 236 K/mm3 (140-440); Red Blood Count 4.38 M/mm3 (3.65-5.03); Red Cell Distribution Width 13.2 % (13.2-15.2)
[2021-07-29 10:07] LABS: Alanine Aminotransferase 14 units/L (7-56); Albumin 4.3 g/dL (3.9-5); BUN/Creatinine Ratio 14; Blood Urea Nitrogen 11 mg/dL (7-17); Hemolysis Index 6
[2021-07-29 10:08] LABS: INR 1.02 (0.87-1.13)
[2021-07-29] MEDS ORDERED: IPRATROPIUM/ALBUTEROL SULFATE 3 ML AMPUL.NEB IH ONE (10:55)
[2021-07-29] MEDS ORDERED: KETOROLAC 30 MG/1 ML INJ IM ONE (10:55)
--- NOTE | 2021-08-04 14:10 | Electrocardiograph Report ---
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
== END 2021-07-29 13:07 | disposition home or self-care (01) ==
LOC: ED 08:37
DX: R07.9 Chest pain, unspecified (principal); R06.02 Shortness of breath
CPT/HCPCS: 36415; 71046; 80053; 84484; 84703; 85025; 85379; 85610; 93005; 96372; 99284; J1885

== ENCOUNTER 2021-10-29 16:49 | Emergency (ER) | payer SELFPAY ==
[2021-10-29 17:53] VITALS: BP 112/61
--- NOTE | 2021-10-29 18:06 | Emergency Department Report ---
- General Chief Complaint: Upper Respiratory Infection Stated Complaint: chest pain during coughing Time Seen by Provider: 10/29/21 17:49 Source: patient Mode of arrival: Ambulatory Limitations: No Limitations - History of Present Illness Initial Comments: This is a pleasant 31-year-old female with past medical history of HIV on antiretroviral therapy who presents the emergency department with a chief complaint of cough, congestion, generalized myalgias, chills and pain in her chest when she coughs that has been present over the past few days. She does report positive exposure to COVID-19. - Related Data Home Medications Medication Instructions Recorded Confirmed Last Taken Emtricitab/Rilpiviri/Tenof Ala 1 each PO DAILY 11/16/20 03/01/21 11/16/20 09:00 [Odefsey Tablet] Darunavir/Cobicistat (Nf) 1 each PO DAILY 03/02/21 03/02/21 03/01/21 [Prezcobix 800 mg-150 mg (Nf)] Previous Rx's Medication Instructions Recorded Last Taken Type Azithromycin [Zithromax Z-JEFFY] 250 mg PO DAILY #6 tab 11/18/20 Unknown Rx Benzonatate [Tessalon Perles] 100 mg PO Q8HR #10 capsule 11/18/20 Unknown Rx Albuterol Mdi (or & Nicu Only) 2 puff IH QID PRN #8.5 gram 12/01/20 Unknown Rx [ProAir HFA Inhaler] Docusate Sodium [Colace CAP] 100 mg PO BID PRN #20 capsule 12/01/20 Unknown Rx Doxycycline Hyclate [Doxycycline 100 mg PO Q12HR 7 Days #14 tab 02/21/21 Unknown Rx Hyclate TAB] Hydrocodone/Chlorphen P-Stirex 5 ml PO BID #115 ml 02/21/21 Unknown Rx [Tussionex Pennkinetic Susp] Azithromycin [Zithromax Z-JEFFY] 0 mg PO DAILY #1 tab 10/29/21 Unknown Rx Benzonatate [Tessalon Perles] 100 mg PO Q8HR #30 capsule 10/29/21 Unknown Rx Ibuprofen [Motrin 800 MG tab] 800 mg PO Q8HR PRN #30 tablet 10/29/21 Unknown Rx Allergies Allergy/AdvReac Type Severity Reaction Status Date / Time No Known Allergies Allergy Verified 11/10/20 10:41 ED Review of Systems ROS: Stated complaint: chest pain during coughing Other details as noted in HPI Constitutional: chills, fever, malaise Eyes: denies: eye pain, eye discharge, vision change ENT: as per HPI, congestion. denies: ear pain, throat pain Respiratory: cough. denies: shortness of breath, wheezing Cardiovascular: denies: chest pain, palpitations Endocrine: no symptoms reported Gastrointestinal: denies: abdominal pain, nausea, diarrhea Genitourinary: denies: urgency, dysuria, discharge Musculoskeletal: as per HPI, myalgia. denies: back pain, joint swelling, arthralgia Skin: denies: rash, lesions Neurological: denies: headache, weakness, paresthesias Psychiatric: denies: anxiety, depression Hematological/Lymphatic: denies: easy bleeding, easy bruising ED Past Medical Hx - Past Medical History Hx HIV: Yes Additional medical history: HIV - Surgical History Hx Cholecystectomy: Yes - Social History Smoking Status: Never Smoker - Medications Home Medications: Home Medications Medication Instructions Recorded Confirmed Last Taken Type Emtricitab/Rilpiviri/Tenof Ala 1 each PO DAILY 11/16/20 03/01/21 11/16/20 09:00 History [Odefsey Tablet] Azithromycin [Zithromax Z-JEFFY] 250 mg PO DAILY #6 tab 11/18/20 03/01/21 Unknown Rx Benzonatate [Tessalon Perles] 100 mg PO Q8HR #10 capsule 11/18/20 03/01/21 Unknown Rx Albuterol Mdi (or & Nicu Only) 2 puff IH QID PRN #8.5 gram 12/01/20 03/01/21 Unknown Rx [ProAir HFA Inhaler] Docusate Sodium [Colace CAP] 100 mg PO BID PRN #20 capsule 12/01/20 03/01/21 Unknown Rx Doxycycline Hyclate [Doxycycline 100 mg PO Q12HR 7 Days #14 tab 02/21/21 03/01/21 Unknown Rx Hyclate TAB] Hydrocodone/Chlorphen P-Stirex 5 ml PO BID #115 ml 02/21/21 03/01/21 Unknown Rx [Tussionex Pennkinetic Susp] Darunavir/Cobicistat (Nf) 1 each PO DAILY 03/02/21 03/02/21 03/01/21 History [Prezcobix 800 mg-150 mg (Nf)] Azithromycin [Zithromax Z-JEFFY] 0 mg PO DAILY #1 tab 10/29/21 Unknown Rx Benzonatate [Tessalon Perles] 100 mg PO Q8HR #30 capsule 10/29/21 Unknown Rx Ibuprofen [Motrin 800 MG tab] 800 mg PO Q8HR PRN #30 tablet 10/29/21 Unknown Rx ED Physical Exam - General Limitations: No Limitations General appearance: alert, in no apparent distress - Head Head exam: Present: atraumatic, normocephalic - Eye Eye exam: Present: normal appearance, PERRL, EOMI Pupils: Present: normal accommodation - ENT ENT exam: Present: normal exam, normal orophraynx, mucous membranes moist - Neck Neck exam: Present: normal inspection, full ROM. Absent: tenderness, me ningismus - Respiratory Respiratory exam: Present: normal lung sounds bilaterally. Absent: respiratory distress, wheezes, rales, rhonchi, stridor - Cardiovascular Cardiovascular Exam: Present: regular rate, normal rhythm, normal heart sounds. Absent: systolic murmur, diastolic murmur, rubs, gallop - GI/Abdominal GI/Abdominal exam: Present: soft, normal bowel sounds. Absent: distended, tenderness, guarding, rebound, rigid - Extremities Exam Extremities exam: Present: normal inspection, full ROM, normal capillary refill. Absent: tenderness, calf tenderness (No posterior calf tenderness, negative Homans' sign bilaterally.) - Back Exam Back exam: Present: normal inspection, full ROM. Absent: tenderness, CVA tenderness (R), CVA tenderness (L) - Neurological Exam Neurological exam: Present: alert, oriented X3, CN II-XII intact, normal gait - Psychiatric Psychiatric exam: Present: normal affect, normal mood - Skin Skin exam: Present: warm, dry, intact, normal color. Absent: rash ED Course Vital Signs 10/29/21 17:42 Temperature 100.4 F H Pulse Rate 88 Respiratory 16 Rate Blood Pressure 112/61 [Left] O2 Sat by Pulse 100 Oximetry ED Medical Decision Making - Medical Decision Making Patient nontoxic no acute distress. Vital signs are stable. PERC negative. Recommend supportive treatment. Recommend adhering to CDC guidelines including social distancing, handwashing and mask wearing. Recommended 5-day self quarantine per the CDC guidelines and will provide a work note for the patient. She is instructed to return the [facility] if develops any change or worsening symptoms. She verbalized understand the diagnosis, treatment and follow-up instructions and all of her questions were answered. - Differential Diagnosis Pneumonia, COVID-19, influenza Critical care attestation.: If time is entered above; I have spent that time in minutes in the direct care of this critically ill patient, excluding procedure time. ED Disposition Clinical Impression: Acute viral syndrome, Suspected COVID-19 virus infection Disposition: HOME / SELF CARE / HOMELESS Is pt being admited?: No Condition: Stable Prescriptions: Ibuprofen [Motrin 800 MG tab] 800 mg PO Q8HR PRN #30 tablet PRN Reason: pain/fever Benzonatate [Tessalon Perles] 100 mg PO Q8HR #30 capsule Azithromycin [Zithromax Z-JEFFY] 0 mg PO DAILY #1 tab Referrals: PRIMARY CARE, [Primary Care Provider] - 3-5 Days [facility] [Provider Group] - 3-5 Days Forms: Work/School Release Form(ED) Time of Disposition: 18:09
== END 2021-10-29 18:30 | disposition home or self-care (01) ==
LOC: ED 16:49
DX: B34.9 Viral infection, unspecified (principal); Z20.822 Contact with and (suspected) exposure to COVID-19; Z21 Asymptomatic human immunodeficiency virus [HIV] infection status; Z90.49 Acquired absence of other specified parts of digestive tract
CPT/HCPCS: 99282

== ENCOUNTER 2022-02-10 07:47 | Emergency (ER) | payer OTHER ==
--- NOTE | 2022-02-10 09:00 | XRay Report ---
CHEST 2 VIEWS INDICATION: Shortness of breath. COMPARISON: 07/29/2021 FINDINGS: Support devices: None. Heart: Within normal limits. Lungs/pleura: No acute air space or interstitial disease. No pleural abnormality or pneumothorax. Additional findings: Mild scoliosis is stable IMPRESSION: Unremarkable chest films. Signer Name: Macario Mccartney Jr, MD Signed: 02/10/2022 8:55 AM Workstation Name: [id number]
[2022-02-10] MEDS ORDERED: OXYMETAZOLINE 0.05% NASAL SPRAY NS ONE (09:30)
--- NOTE | 2022-02-10 09:30 | Emergency Department Report ---
Minor Respiratory - HPI Chief Complaint: Dyspnea/Respdistress Stated Complaint: SOB/CHEST PAIN/NOSE BLEEDING Time Seen by Provider: 02/10/22 09:27 Duration: 2 Days Pain Location: Chest Severity: mild Minor Respiratory: Yes Rhinorrhea, Yes Able to Tolerate Fluids, Yes Cough, No Sore Throat, No Ear Pain, No Sick Contacts, No Hemoptysis, No Chest Pain, No Shortness of Breath, No Fever Other History: Patient is a 31-year-old female that comes to the emergency room with a bleeding nose and cold symptoms. She is concerned because she has HIV. She has tried to get in with her doctor the last couple days but he has been unavailable. She states she sees a doctor across the street. Patient is ambulatory, [id number] nontoxic with normal vital signs on arrival. ED Review of Systems ROS: Stated complaint: SOB/CHEST PAIN/NOSE BLEEDING Other details as noted in HPI Comment: All other systems reviewed and negative ED Past Medical Hx - Past Medical History Previous Medical History?: Yes Hx HIV: Yes Additional medical history: HIV - Surgical History Past Surgical History?: Yes Hx Cholecystectomy: Yes - Family History Family history: no significant - Social History Smoking Status: Never Smoker Substance Use Type: None - Medications Home Medications: Home Medications Medication Instructions Recorded Confirmed Last Taken Type Emtricitab/Rilpiviri/Tenof Ala 1 each PO DAILY 11/16/20 03/01/21 11/16/20 09:00 History [Odefsey Tablet] Azithromycin [Zithromax Z-JEFFY] 250 mg PO DAILY #6 tab 11/18/20 03/01/21 Unknown Rx Benzonatate [Tessalon Perles] 100 mg PO Q8HR #10 capsule 11/18/20 03/01/21 Unknown Rx Albuterol Mdi (or & Nicu Only) 2 puff IH QID PRN #8.5 gram 12/01/20 03/01/21 Unknown Rx [ProAir HFA Inhaler] Docusate Sodium [Colace CAP] 100 mg PO BID PRN #20 capsule 12/01/20 03/01/21 Unknown Rx Doxycycline Hyclate [Doxycycline 100 mg PO Q12HR 7 Days #14 tab 02/21/21 03/01/21 Unknown Rx Hyclate TAB] Hydrocodone/Chlorphen P-Stirex 5 ml PO BID #115 ml 02/21/21 03/01/21 Unknown Rx [Tussionex Pennkinetic Susp] Darunavir/Cobicistat (Nf) 1 each PO DAILY 03/02/21 03/02/21 03/01/21 History [Prezcobix 800 mg-150 mg (Nf)] Azithromycin [Zithromax Z-JEFFY] 0 mg PO DAILY #1 tab 10/29/21 Unknown Rx Benzonatate [Tessalon Perles] 100 mg PO Q8HR #30 capsule 10/29/21 Unknown Rx Ibuprofen [Motrin 800 MG tab] 800 mg PO Q8HR PRN #30 tablet 10/29/21 Unknown Rx Azithromycin [Zithromax Z-JEFFY] 250 mg PO DAILY #6 tablet 02/10/22 Unknown Rx Minor Respiratory Exam - Exam General: Vital signs noted. No distress. Alert and acting appropriately. nose bleed HEENT: Yes Pharyngeal Erythema, Yes Moist Mucous Membranes, No Pharyngeal Exudates, No Rhinorrhea, No Conjuctival Injection, No Frontal Tenderness, No Maxillary Tenderness Ear: Neither TM Bulge, Neither TM Erythema, Neither EAC Pain, Neither EAC Discharge Neck: Yes Supple, No Adenopathy Lungs: Yes Good Air Exchange, No Wheezes, No Ronchi, No Stridor, No Cough, No L abored Respirations, No Retractions, No Use of Accessory Muscles, No Other Abnormal Lung Sounds Heart: Yes Regular, No Murmur Abdomen: Yes Normal Bowel Sounds, No Tenderness, No Peritoneal Signs Skin: No Rash, No Edema Neurologic: Alert and oriented, no deficits. Musculoskeletal: Unremarkable. ED Course Vital Signs 02/10/22 08:12 Temperature 98.2 F Pulse Rate 77 Respiratory 14 Rate Blood Pressure 114/72 O2 Sat by Pulse 100 Oximetry ED Medical Decision Making - Lab Data Result diagrams: 02/10/22 09:54 02/10/22 09:54 - Radiology Data Radiology results: report reviewed, image reviewed [facility] - Medical Decision Making Vital Signs 02/10/22 08:12 Temperature 98.2 F Pulse Rate 77 Respiratory 14 Rate Blood Pressure 114/72 O2 Sat by Pulse 100 Oximetry Lab Results 02/10/22 02/10/22 Range/Units 09:54 09:54 WBC 5.2 (4.5-11.0) K/mm3 RBC 4.79 (3.65-5.03) M/mm3 Hgb 14.2 (10.1-14.3) gm/dl Hct 42.9 (30.3-42.9) % MCV 90 (79-97) fl MCH 30 (28-32) pg MCHC 33 (30-34) % RDW 13.1 L (13.2-15.2) % Plt Count 260 (140-440) K/mm3 Lymph % (Auto) 39.0 H (13.4-35.0) % [place] % (Auto) 5.9 (0.0-7.3) % Eos % (Auto) 3.9 (0.0-4.3) % Baso % (Auto) 1.4 (0.0-1.8) % Lymph # (Auto) 2.0 (1.2-5.4) K/mm3 [place] # (Auto) 0.3 (0.0-0.8) K/mm3 Eos # (Auto) 0.2 (0.0-0.4) K/mm3 Baso # (Auto) 0.1 (0.0-0.1) K/mm3 Seg Neutrophils % 49.8 (40.0-70.0) % Seg Neutrophils # 2.6 (1.8-7.7) K/mm3 Sodium 137 (137-145) mmol/L Potassium 4.6 (3.6-5.0) mmol/L Chloride 103.9 (98-107) mmol/L Carbon Dioxide 24 (22-30) mmol/L Anion Gap 14 mmol/L BUN 11 (7-17) mg/dL Creatinine 0.9 (0.6-1.2) mg/dL Estimated GFR > 60 ml/min BUN/Creatinine Ratio 12 % Glucose 107 H (65-100) mg/dL Calcium 9.5 (8.4-10.2) mg/dL Total Bilirubin 0.50 (0.1-1.2) mg/dL AST 15 (5-40) units/L ALT 13 (7-56) units/L Alkaline Phosphatase 88 (35-129) units/L Total Protein 7.5 (6.3-8.2) g/dL Albumin 4.4 (3.9-5) g/dL Albumin/Globulin Ratio 1.4 % Labs noted. X-ray normal. Patient ambulatory, nonill nontoxic and taking p.o. Patient educated on discharge plan of care including diet, activity medications and follow-up. She understands she needs to see her HIV/PCP for follow-up. - Differential Diagnosis ro pna/uri Critical care attestation.: If time is entered above; I have spent that time in minutes in the direct care of this critically ill patient, excluding procedure time. ED Disposition Clinical Impression: Hx of human immunodeficiency virus I infection, Bleeding nose URI (upper respiratory infection) Qualifiers: URI type: unspecified URI Qualified Code(s): J06.9 - Acute upper respiratory infection, unspecified Disposition: 01 HOME / SELF CARE / HOMELESS Is pt being admited?: No Does the pt Need Aspirin: No Condition: Stable Instructions: Viral Respiratory Infection Additional Instructions: Medications as ordered today follow-up with your PCP in 24 to 48 hours for recheck given your history continue your home meds Motrin or Tylenol for pain Diet and activity as tolerated [id number] Afrin can be used for your nosebleed keep your home cool and humidified Your labs and x-ray are normal today Prescriptions: Azithromycin [Zithromax Z-JEFFY] 250 mg PO DAILY #6 tablet Referrals: KATHYA TORRES MD [Primary Care Provider] - 3-5 Days Time of Disposition: 10:41
[2022-02-10 10:30] LABS: Basophils # (Auto) 0.1 K/mm3 (0.0-0.1); Basophils % (Auto) 1.4 % (0.0-1.8); Eosinophils # (Auto) 0.2 K/mm3 (0.0-0.4); Eosinophils % (Auto) 3.9 % (0.0-4.3); Hematocrit 42.9 % (30.3-42.9); Hemoglobin 14.2 gm/dl (10.1-14.3); Mean Corpuscular HGB Conc 33 % (30-34); Mean Corpuscular Volume 90 fl (79-97); Monocytes # (Auto) 0.3 K/mm3 (0.0-0.8); Monocytes % (Auto) 5.9 % (0.0-7.3); Platelet Count 260 K/mm3 (140-440); Red Blood Count 4.79 M/mm3 (3.65-5.03); Red Cell Distribution Width 13.1 % (13.2-15.2)
[2022-02-10 10:33] LABS: Alanine Aminotransferase 13 units/L (7-56); Albumin 4.4 g/dL (3.9-5); BUN/Creatinine Ratio 12; Blood Urea Nitrogen 11 mg/dL (7-17); Calcium 9.5 mg/dL (8.4-10.2); Hemolysis Index 6
[2022-02-10 12:10] VITALS: BP 115/78
== END 2022-02-10 12:10 | disposition home or self-care (01) ==
LOC: ED 07:47
DX: J02.9 Acute pharyngitis, unspecified (principal); R04.0 Epistaxis; Z21 Asymptomatic human immunodeficiency virus [HIV] infection status
CPT/HCPCS: 36415; 71046; 80053; 85025; 99283